=== PATIENT | female | born 1985 | race Caucasian/White ===

== ENCOUNTER → 2016-04-17 | Outpatient (CLI) | payer OTHER ==
--- NOTE | 2016-04-17 13:53 | REP ---
Clinical: Thyroid nodule. Technique: Real time edmonds scale and color evaluation using linear high frequency transducer. Findings: The thyroid gland is diffusely heterogeneous and mildly enlarged. The left lobe measures 5.3 x 2.9 x 2.8 cm and dominated by large complex nodule with subtle vascularity measuring 3.4 x 2.5 x 2.1 cm. Right lobe measures 5.1 x 2.0 x 2.1 cm without nodule or cystic changes. Isthmus measures 8 mm in width. Impression: Complex nonspecific vascular nodule in the left thyroid lobe. No prior examination for comparison. The sampling by interventional radiology may be warranted.
== END ==
LOC: M WHC 13:06
PROVIDERS: ATTEND Physician Assistant
DX: E04.1 Nontoxic single thyroid nodule (principal)

== ENCOUNTER → 2016-06-26 | Outpatient (REF) | payer OTHER | LOC: M LAB REF 09:46 | PROVIDERS: ATTEND Physician Assistant Medical | DX: J02.9 Acute pharyngitis, unspecified (principal) ==

== ENCOUNTER → 2016-08-08 | Outpatient (CLI) | payer OTHER ==
--- NOTE | 2016-08-09 07:51 | REP ---
Clinical: Cough . Comparison: None . Technique: PA and lateral. Findings: The mediastinum and cardiac silhouette are normal. The lung watson are clear and without acute consolidation, effusion, or pneumothorax. The skeletal structures are intact and normal. Impression: 1. No acute cardiopulmonary process. Signed by Jaden Bates MD 08/09/2016 07:43 A
[2016-08-09 10:36] LABS: BASO % 0.2 % (0.0-1.0); EOS # 0.2 K/mm3 (0.0-0.50); EOS % 2.2 % (0.0-3.0); LARGE UNSTAINED CELL # 0.1 K/mm3 (0.0-0.4); LARGE UNSTAINED CELL % 0.9 % (0.0-4.0); LYMPH # 2.1 K/mm3 (1.5-4.5); LYMPH % 17.3 % (24.0-44.0); MEAN CORPUSCULAR HGB CONC 30.4 g/dl (32.0-36.5); MEAN CORPUSCULAR VOLUME 75.6 fl (80.0-96.0); MONO # 0.4 K/mm3 (0.0-0.8); MONO % 3.2 % (0.0-5.0); NEUTROPHILS # 8.7 K/mm3 (1.8-7.7); NEUTROPHILS % 76.3 % (36.0-66.0); PLATELET COUNT, AUTOMATED 343 k/mm3 (150-450); RED CELL DISTRIBUTION WIDTH 15.9 % (11.5-14.5); WHITE BLOOD COUNT 11.4 K/mm3 (4.0-10.0)
== END ==
LOC: M ADAMS 18:30
PROVIDERS: ATTEND Physician Assistant
DX: R05 Cough (principal); R50.9 Fever, unspecified

== ENCOUNTER → 2016-08-17 | Outpatient (REF) | payer OTHER | LOC: M LAB REF 12:37 | PROVIDERS: ATTEND Internal Medicine Endocrinology, Diabetes & Metabolism | DX: E04.1 Nontoxic single thyroid nodule (principal) ==

== ENCOUNTER → 2016-08-22 | Outpatient (REF) | payer OTHER | LOC: M SFHCADAM 10:10 | PROVIDERS: ATTEND Family Medicine | DX: E55.9 Vitamin D deficiency, unspecified (principal) ==

== ENCOUNTER 2016-11-25 13:20 | Emergency (ER) | payer OTHER ==
[~2016-11-25] VITALS: Ht 162.6 cm; Wt 127.3 kg
[2016-11-25] MEDS ORDERED: CYCL10TA PO (13:35)
[2016-11-25] MEDS ORDERED: TRAM50TA2 PO (13:35)
[2016-11-25] MEDS ORDERED: CEPHALEXIN 500 MG CAP PO ONE (15:30)
[2016-11-25] MEDS ORDERED: IBUPROFEN 600 MG TAB PO ONE (15:30)
[2016-11-25] MEDS ORDERED: KEFL500C17 PO (16:43)
[2016-11-25] MEDS ORDERED: CLEO300C2 PO (16:49)
[2016-11-25 17:20] VITALS: BP 166/88
--- NOTE | 2016-11-26 11:55 | REP ---
CLOSE RIGHT HIP: Two views. HISTORY: Injury in a fall. FINDINGS: Bony pelvic ring is intact. No pelvic or sacral fracture is seen. Proximal femurs are intact. AP and frog-leg views of the right hip show no abnormality. IMPRESSION: No fracture seen. Signed by Hernan Potter MD 11/26/2016 12:37 P
--- NOTE | 2016-11-26 11:56 | REP ---
RIGHT KNEE SERIES: Five views. HISTORY: Twisting injury in a fall. FINDINGS: Five views of the right knee are compared with the July 14, 2010 prior radiographs. There is no evidence of fracture, subluxation, or joint effusion. IMPRESSION: Negative right knee radiographs. Signed by Hernan Potter MD 11/26/2016 12:37 P
== END 2016-11-25 17:46 | disposition home or self-care (01) ==
LOC: M ED 13:20
DX: M23.91 Unspecified internal derangement of right knee (principal); L03.031 Cellulitis of right toe; E04.1 Nontoxic single thyroid nodule; G43.909 Migraine, unspecified, not intractable, without status migrainosus; Z87.891 Personal history of nicotine dependence; Z88.1 Allergy status to other antibiotic agents; Z88.2 Allergy status to sulfonamides; Z88.8 Allergy status to other drugs, medicaments and biological substances

== ENCOUNTER 2017-03-13 15:47 | Emergency (ER) | payer OTHER ==
[~2017-03-13] VITALS: Ht 162.6 cm; Wt 127.3 kg
[~2017-03-13 15:47] MED LIST: CLEO300C2 PO; CYCL10TA PO; KEFL500C17 PO; TRAM50TA2 PO
[2017-03-13 15:48] VITALS: BP 158/96
[2017-03-13] MEDS ORDERED: VITA1CAP40 (16:10)
[2017-03-13] MEDS ORDERED: TYLE325T5 PO (16:10)
== END 2017-03-13 17:14 | disposition home or self-care (01) ==
LOC: M ED 15:47
DX: J06.9 Acute upper respiratory infection, unspecified (principal); F17.210 Nicotine dependence, cigarettes, uncomplicated; Z88.0 Allergy status to penicillin; Z88.2 Allergy status to sulfonamides

== ENCOUNTER 2017-06-17 13:41 | Emergency (ER) | payer OTHER ==
[2017-06-17] MEDS: IBUPROFEN 600 MG TAB PO (15:56)
[2017-06-17] MEDS: NORCO, ANEXSIA 5/325MG TABLET (HYDROcodone/ACETAMINOPHEN) PO (17:15)
== END 2017-06-17 17:36 | disposition home or self-care (01) ==
LOC: M ED 13:41
DX: S82.65XA Nondisplaced fracture of lateral malleolus of left fibula, initial encounter for closed fracture (principal); W01.0XXA Fall on same level from slipping, tripping and stumbling without subsequent striking against object, initial encounter; Y92.099 Unspecified place in other non-institutional residence as the place of occurrence of the external cause; Y93.9 Activity, unspecified; M54.9 Dorsalgia, unspecified; F17.200 Nicotine dependence, unspecified, uncomplicated; Z79.899 Other long term (current) drug therapy; Z88.0 Allergy status to penicillin; Z88.2 Allergy status to sulfonamides; Z88.8 Allergy status to other drugs, medicaments and biological substances; Z88.1 Allergy status to other antibiotic agents
CPT/HCPCS: 73610

== ENCOUNTER 2017-06-29 20:27 | Emergency (ER) | payer OTHER ==
[2017-06-30] MEDS: CEPHALEXIN 500 MG CAP PO
== END 2017-06-30 00:32 | disposition home or self-care (01) ==
LOC: M ED 06-30 00:32
DX: J03.90 Acute tonsillitis, unspecified (principal); F17.200 Nicotine dependence, unspecified, uncomplicated; Z88.0 Allergy status to penicillin; Z88.2 Allergy status to sulfonamides
CPT/HCPCS: 99282

== ENCOUNTER → 2017-07-03 | Outpatient (REF) | payer OTHER | LOC: M LAB REF 12:20 | DX: N30.01 Acute cystitis with hematuria (principal) | CPT/HCPCS: 87086 ==

== ENCOUNTER 2017-07-08 17:46 | Emergency (ER) | payer OTHER | END 2017-07-08 19:52 | disposition left against medical advice (07) | LOC: M ED 17:46 | DX: Z53.29 Procedure and treatment not carried out because of patient's decision for other reasons (principal) ==

== ENCOUNTER 2017-07-10 14:35 | Emergency (ER) | payer OTHER ==
[2017-07-10 15:20] LABS: CONTROL LINE UCG INT CTR LINE PRESENT; URINE PREG TEST NEGATIVE (NEGATIVE)
[2017-07-10 15:26] LABS: KETONE, URINE AUTO RFX NEGATIVE (NEGATIVE); NITRITE, URINE AUTO RFX NEGATIVE (NEGATIVE); RBC, URINE AUTO RFX 2 /HPF (0-3); SPECIFIC GRAVITY UR AUTO RFX 1.003 (1.002-1.035); SQUAM EPITHELIAL CELL UR AURFX 0 /HPF (0-6); WBC, URINE AUTO RFX 1 /HPF (0-3)
[2017-07-10 15:28] LABS: LEUKOCYTE ESTERASE UR AUTO RFX TRACE (NEGATIVE)
[2017-07-10] MEDS: KETOROLAC 30 MG/ML VIAL (J1885) IV (16:12)
[2017-07-10] MEDS: NS 1,000 ML IV (16:12)
[2017-07-10 16:18] LABS: BASO % 0.3 % (0.0-1.0); EOS # 0.2 10^3/uL (0.0-0.50); EOS % 1.7 % (0.0-3.0); HEMATOCRIT 42.4 % (36.0-47.0); IMMATURE GRANULOCYTE % 0.9 % (0-3.0); LYMPH # 2.7 10^3/uL (1.5-4.5); LYMPH % 19.8 % (24.0-44.0); MEAN CORPUSCULAR HGB CONC 30.7 g/dl (32.0-36.5); MEAN CORPUSCULAR VOLUME 78.4 fl (80.0-96.0); MONO # 0.6 10^3/uL (0.0-0.8); MONO % 4.1 % (0.0-5.0); NEUTROPHILS % 73.2 % (36.0-66.0); PLATELET COUNT, AUTOMATED 371 10^3/uL (150-450); RED BLOOD COUNT 5.41 10^6/uL (4.00-5.40); RED CELL DISTRIBUTION WIDTH 16.4 % (11.5-14.5); WHITE BLOOD COUNT 13.6 10^3/uL (4.0-10.0)
[2017-07-10 16:51] LABS: ALBUMIN 3.5 GM/DL (3.2-5.2); ALBUMIN/GLOBULIN RATIO 0.76 (1.00-1.93); ALKALINE PHOSPHATASE 110 U/L (45-117); ALT/SGPT 16 U/L (12-78); ANION GAP 7 MEQ/L (8-16); AST/SGOT 9 U/L (7-37); BILIRUBIN,DIRECT < 0.1 MG/DL (0.0-0.2); BILIRUBIN,TOTAL 0.3 MG/DL (0.2-1.0); BLOOD UREA NITROGEN 9 MG/DL (7-18); CARBON DIOXIDE LEVEL 29 MEQ/L (21-32); CHLORIDE LEVEL 104 MEQ/L (98-107); CREATININE FOR GFR 0.64 MG/DL (0.55-1.30); GLOMERULAR FILTRATION RATE > 60.0 (>60); GLUCOSE, FASTING 102 MG/DL (70-100); POTASSIUM SERUM 3.9 MEQ/L (3.5-5.1); SODIUM LEVEL 140 MEQ/L (136-145); TOTAL PROTEIN 8.1 GM/DL (6.4-8.2)
[2017-07-10] MEDS: MORPHINE 4 MG/ML 1ML VIAL (J2270) IV (17:41)
== END 2017-07-10 18:04 | disposition home or self-care (01) ==
LOC: M ED 14:35
DX: N83.202 Unspecified ovarian cyst, left side (principal); Z88.0 Allergy status to penicillin; Z88.2 Allergy status to sulfonamides; Z88.8 Allergy status to other drugs, medicaments and biological substances
CPT/HCPCS: J2270

== ENCOUNTER → 2017-07-27 | Outpatient (CLI) | payer OTHER | LOC: M ADAMS 13:53 | DX: M25.572 Pain in left ankle and joints of left foot (principal); N30.01 Acute cystitis with hematuria | CPT/HCPCS: 87186 ==

== ENCOUNTER 2017-07-31 18:36 | Emergency (ER) | payer OTHER ==
[2017-07-31] MEDS: ONDANSETRON 4 MG ORAL DISINTEGRATING TAB (Q0162 PER 1MG) PO (19:30)
[2017-07-31] MEDS: IPRATROPIUM 0.5MG/ALBUTEROL 2.5MG INH SOL UD 3ML (DUONEB)(J7620) NEB (20:08)
[2017-07-31 20:31] LABS: INFLUENZA A AMPLIFICATION NEGATIVE (NEGATIVE); INFLUENZA B AMPLIFICATION NEGATIVE (NEGATIVE)
[2017-07-31] MEDS: IBUPROFEN 800 MG TAB PO (20:39)
[2017-07-31] MEDS: predniSONE 20 MG TAB PO (21:45)
== END 2017-07-31 21:59 | disposition home or self-care (01) ==
LOC: M ED 18:36
DX: J06.9 Acute upper respiratory infection, unspecified (principal); J98.01 Acute bronchospasm; Z79.899 Other long term (current) drug therapy; Z88.0 Allergy status to penicillin; Z88.2 Allergy status to sulfonamides; Z88.8 Allergy status to other drugs, medicaments and biological substances; F17.200 Nicotine dependence, unspecified, uncomplicated
CPT/HCPCS: Q0162

== ENCOUNTER 2017-08-06 17:26 | Emergency (ER) | payer OTHER ==
[2017-08-06] MEDS: NS 500 ML IV (18:45)
[2017-08-06] MEDS: KETOROLAC 30 MG/ML VIAL (J1885) IV (19:30)
[2017-08-06 19:52] LABS: BASO % 0.2 % (0.0-1.0); EOS # 0.2 10^3/uL (0.0-0.50); EOS % 1.9 % (0.0-3.0); HEMATOCRIT 37.9 % (36.0-47.0); HEMOGLOBIN 11.8 g/dl (12.0-15.5); IMMATURE GRANULOCYTE % 0.9 % (0-3.0); LYMPH % 24.5 % (24.0-44.0); MEAN CORPUSCULAR HEMOGLOBIN 24.2 pg (27.0-33.0); MEAN CORPUSCULAR HGB CONC 31.1 g/dl (32.0-36.5); MEAN CORPUSCULAR VOLUME 77.7 fl (80.0-96.0); MONO # 0.7 10^3/uL (0.0-0.8); MONO % 5.6 % (0.0-5.0); NEUTROPHILS # 8.2 10^3/uL (1.8-7.7); NEUTROPHILS % 66.9 % (36.0-66.0); PLATELET COUNT, AUTOMATED 349 10^3/uL (150-450); RED BLOOD COUNT 4.88 10^6/uL (4.00-5.40); RED CELL DISTRIBUTION WIDTH 16.3 % (11.5-14.5); WHITE BLOOD COUNT 12.2 10^3/uL (4.0-10.0)
[2017-08-06 20:09] LABS: CONTROL LINE HCG INT CTR LINE PRESENT; HCG, SERUM QUALITATIVE NEGATIVE (NEGATIVE)
[2017-08-06 20:20] LABS: ALBUMIN 3.2 GM/DL (3.2-5.2); ALBUMIN/GLOBULIN RATIO 0.84 (1.00-1.93); ALKALINE PHOSPHATASE 91 U/L (45-117); ALT/SGPT 23 U/L (12-78); ANION GAP 9 MEQ/L (8-16); AST/SGOT 11 U/L (7-37); BILIRUBIN,DIRECT < 0.1 MG/DL (0.0-0.2); BILIRUBIN,TOTAL 0.2 MG/DL (0.2-1.0); BLOOD UREA NITROGEN 12 MG/DL (7-18); CALCIUM LEVEL 8.3 MG/DL (8.5-10.1); CARBON DIOXIDE LEVEL 26 MEQ/L (21-32); CHLORIDE LEVEL 109 MEQ/L (98-107); CPK CREATINE PHOSPHOKINASE 35 U/L (26-192); CREATININE FOR GFR 0.69 MG/DL (0.55-1.30); FREE T4 1.24 NG/DL (0.76-1.46); GLOMERULAR FILTRATION RATE > 60.0 (>60); GLUCOSE, FASTING 107 MG/DL (70-100); LIPASE 93 U/L (73-393); POTASSIUM SERUM 3.7 MEQ/L (3.5-5.1); SODIUM LEVEL 144 MEQ/L (136-145); TROPONIN I < 0.02 NG/ML (< 0.10)
[2017-08-06 20:23] LABS: D-DIMER QUANT < 270.0 ng/ml (<500)
[2017-08-06 20:25] LABS: CK-MB VALUE MASS < 1.0 NG/ML (<3.6); MB/CK RELATIVE INDEX 2.85 (< OR =4); THYROID STIMULATING HORMONE 0.629 uIU/ML (0.358-3.740)
[2017-08-06] MEDS: NORCO 5/325MG TABLET (BULK FOR ED) PO (21:00)
== END 2017-08-06 21:17 | disposition home or self-care (01) ==
LOC: M ED 17:26
DX: R07.89 Other chest pain (principal); Z88.0 Allergy status to penicillin; Z88.2 Allergy status to sulfonamides; Z88.8 Allergy status to other drugs, medicaments and biological substances; F17.210 Nicotine dependence, cigarettes, uncomplicated
CPT/HCPCS: J1885

== ENCOUNTER 2018-05-14 16:41 | Emergency (ER) | payer MEDICAID, OTHER, SELFPAY ==
[~2018-05-14] VITALS: Ht 165.1 cm; Wt 115.9 kg
[~2018-05-14 16:41] MED LIST changes: +ALBU17IN2 INH; +BENZ200C70 PO; +FLUTISP INH; +HYDR-3715 PO; +IBUP200C25 PO; +NAPR-837 PO; +NITR100C2 PO; +PRED20TA PO; +TYLE325T5 PO; +VITA10002 PO; +VITA50005; +VITA50005 PO
[2018-05-14] MEDS ORDERED: KETOROLAC 30 MG/ML VIAL (J1885) IM ONE (17:15)
[2018-05-14] MEDS ORDERED: ACETAMINOPHEN 325 MG TAB PO ONE (17:15)
--- NOTE | 2018-05-14 18:00 | REP ---
Lumbar spine series: Five views. History: Trauma. Findings: Five views of the lumbar spine show straightening of the normal lumbar lordosis. Vertebral body heights are preserved. Alignment is normal. Pedicles and posterior elements are intact. No fracture or collapse is seen. Sacrum and SI joints are intact. Visualized bowel gas pattern is normal. Psoas margins are symmetric. Impression: Straightening. Otherwise negative lumbar spine radiographs. Electronically Signed by Hernan Potter MD 05/14/2018 05:52 P
--- NOTE | 2018-05-14 18:01 | REP ---
Right hand series: Four views. History: Trauma. Findings: Four views right hand demonstrate overall normal mineralization. Bones, joints and soft tissues are unremarkable. No fracture or subluxation is seen. Impression: Negative right hand radiographs. No fracture seen. Electronically Signed by Hernan Potter MD 05/14/2018 05:53 P
--- NOTE | 2018-05-14 18:02 | REP ---
Right forearm: Two views. History: Trauma. Findings: AP and lateral views of the right forearm demonstrate normal bones, joints and soft tissues. No fracture or subluxation is seen. Impression: Negative radiographs of the right forearm. Electronically Signed by Hernan Potter MD 05/14/2018 05:54 P
[2018-05-14 18:40] VITALS: BP 142/91
--- NOTE | 2018-05-14 19:28 | REP ---
Right humerus: Two views. History: Trauma. Findings: AP and lateral views of the right humerus demonstrate normal bones, joints and soft tissues. There is no evidence of fracture or subluxation. Impression: Negative radiographs of the right humerus. Electronically Signed by Hernan Potter MD 05/14/2018 07:33 P
== END 2018-05-14 18:52 | disposition home or self-care (01) ==
LOC: M ED 16:41
DX: S30.0XXA Contusion of lower back and pelvis, initial encounter (principal); S40.021A Contusion of right upper arm, initial encounter; W00.0XXA Fall on same level due to ice and snow, initial encounter; Y92.009 Unspecified place in unspecified non-institutional (private) residence as the place of occurrence of the external cause
CPT/HCPCS: 72110; 73060; 73090; 73130; 96372; 99283; J1885

== ENCOUNTER 2018-05-26 17:52 | Emergency (ER) | payer MEDICAID, SELFPAY ==
[~2018-05-26] VITALS: Ht 162.6 cm; Wt 115.9 kg
[2018-05-26] MEDS ORDERED: IPRATROPIUM 0.5MG/ALBUTEROL 2.5MG INH SOL UD 3ML (DUONEB)(J7620) NEB ONE (20:30)
[2018-05-26] MEDS ORDERED: MUCI600T37 PO (20:57)
[2018-05-26] MEDS ORDERED: ZITHTAB PO (20:57)
[2018-05-26] MEDS ORDERED: BENZ200C70 PO (20:57)
[2018-05-26] MEDS ORDERED: VENTAER INH (20:59)
[2018-05-26] MEDS ORDERED: AZITHROMYCIN 250 MG TAB PO ONE (21:00)
[2018-05-26 21:04] VITALS: BP 141/71
--- NOTE | 2018-05-27 01:44 | REP ---
Clinical: Cough and chills with shortness of breath . Comparison: 08/06/2017 . Technique: PA and lateral. Findings: The mediastinum and cardiac silhouette are normal. The lung watson are clear and without acute consolidation, effusion, or pneumothorax. The skeletal structures are intact and normal. Impression: 1. No acute cardiopulmonary process. Electronically Signed by Jaden Bates MD 05/27/2018 01:36 A
== END 2018-05-26 21:09 | disposition home or self-care (01) ==
LOC: M ED 17:52
DX: J06.9 Acute upper respiratory infection, unspecified (principal); F17.210 Nicotine dependence, cigarettes, uncomplicated; Z88.0 Allergy status to penicillin; Z88.2 Allergy status to sulfonamides; Z79.899 Other long term (current) drug therapy

== ENCOUNTER 2018-07-20 07:23 | Emergency (ER) | payer MEDICAID, SELFPAY ==
[~2018-07-20] VITALS: Ht 162.6 cm; Wt 120.5 kg
[~2018-07-20 07:23] MED LIST changes: +MUCI600T37 PO; +VENTAER INH; +ZITHTAB PO
[2018-07-20] MEDS ORDERED: KETOROLAC 30 MG/ML VIAL (J1885) IV ONE (08:00)
[2018-07-20 08:28] LABS: BASO % 0.3 % (0.0-1.0); EOS # 0.3 10^3/uL (0.0-0.50); EOS % 2.1 % (0.0-3.0); HEMATOCRIT 40.2 % (36.0-47.0); HEMOGLOBIN 12.9 g/dl (12.0-15.5); LYMPH # 1.3 10^3/uL (1.5-4.5); LYMPH % 9.2 % (24.0-44.0); MEAN CORPUSCULAR HEMOGLOBIN 25.4 pg (27.0-33.0); MEAN CORPUSCULAR HGB CONC 32.1 g/dl (32.0-36.5); MEAN CORPUSCULAR VOLUME 79.3 fl (80.0-96.0); MONO # 0.7 10^3/uL (0.0-0.8); MONO % 4.8 % (0.0-5.0); NEUTROPHILS # 11.3 10^3/uL (1.8-7.7); NEUTROPHILS % 82.5 % (36.0-66.0); PLATELET COUNT, AUTOMATED 355 10^3/uL (150-450); RED BLOOD COUNT 5.07 10^6/uL (4.00-5.40); WHITE BLOOD COUNT 13.6 10^3/uL (4.0-10.0)
[2018-07-20 08:59] LABS: ALBUMIN 3.4 GM/DL (3.2-5.2); ALT/SGPT 17 U/L (12-78); BILIRUBIN,DIRECT < 0.1 MG/DL (0.0-0.2); BILIRUBIN,TOTAL 0.2 MG/DL (0.2-1.0); BLOOD UREA NITROGEN 8 MG/DL (7-18); CALCIUM LEVEL 8.7 MG/DL (8.5-10.1); CARBON DIOXIDE LEVEL 26 MEQ/L (21-32); CHLORIDE LEVEL 104 MEQ/L (98-107); CK-MB VALUE MASS < 1.0 NG/ML (<3.6); CPK CREATINE PHOSPHOKINASE 37 U/L (26-192); CREATININE FOR GFR 0.79 MG/DL (0.55-1.30); GLOMERULAR FILTRATION RATE > 60.0 (>60); GLUCOSE, FASTING 112 MG/DL (70-100); HCG, SERUM QUALITATIVE NEGATIVE (NEGATIVE); LIPASE 83 U/L (73-393); POTASSIUM SERUM 4.2 MEQ/L (3.5-5.1); SODIUM LEVEL 139 MEQ/L (136-145); TOTAL PROTEIN 7.4 GM/DL (6.4-8.2); TROPONIN I < 0.02 NG/ML (< 0.10)
[2018-07-20] MEDS ORDERED: PERCOCET 5MG/325MG TAB PO ONE (10:15)
[2018-07-20] MEDS ORDERED: PERC5TAB12 PO (13:01)
[2018-07-20] MEDS ORDERED: NEUR300C PO (13:01)
[2018-07-20] MEDS ORDERED: IBUP80TA PO (13:03)
[2018-07-20 13:08] LABS: CK-MB VALUE MASS < 1.0 NG/ML (<3.6); CPK CREATINE PHOSPHOKINASE 29 U/L (26-192); MB/CK RELATIVE INDEX 3.45 (< OR =4); TROPONIN I < 0.02 NG/ML (< 0.10)
[2018-07-20 13:56] VITALS: BP 121/77
--- NOTE | 2018-07-20 19:24 | ECGEPIP ---
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
--- NOTE | 2018-07-21 09:26 | REP ---
Chest x-ray: Two views. History: Chest pain. . Comparison study: May 26, 2018 . Findings: The lungs are well inflated and free of infiltrate. The pleural angles are sharp. The heart size is normal. Pulmonary vasculature is not increased. No significant bony abnormality is seen. Impression: Negative chest x-ray. Electronically Signed by Hernan Potter MD 07/20/2018 08:05 A
--- NOTE | 2018-07-21 09:26 | REP ---
Left clavicle: Two views. History: Shoulder pain. Remote clavicle injury. Findings: Two views of the left clavicle demonstrate normal bones, joints, and soft tissues. No fracture subluxation or other abnormality. No post-traumatic deformity is seen. Impression: Negative radiographs of the left clavicle. Electronically Signed by Hernan Potter MD 07/20/2018 08:06 A
== END 2018-07-20 13:58 | disposition home or self-care (01) ==
LOC: M ED 07:23
DX: M25.511 Pain in right shoulder (principal); G89.29 Other chronic pain; R07.9 Chest pain, unspecified; R03.0 Elevated blood-pressure reading, without diagnosis of hypertension; F17.210 Nicotine dependence, cigarettes, uncomplicated; Z87.828 Personal history of other (healed) physical injury and trauma; Z82.49 Family history of ischemic heart disease and other diseases of the circulatory system; Z88.1 Allergy status to other antibiotic agents; Z88.2 Allergy status to sulfonamides; Z88.8 Allergy status to other drugs, medicaments and biological substances
CPT/HCPCS: 71046; 73000; 80048; 80076; 82550; 82553; 83690; 84703; 85025; 93005; 96374; 99284; J1885

== ENCOUNTER 2018-12-22 21:29 | Emergency (ER) | payer MEDICAID, OTHER ==
[~2018-12-22] VITALS: Ht 162.6 cm; Wt 116.8 kg
[~2018-12-22 21:29] MED LIST changes: -ALBU17IN2 INH; +CYAN100049 PO; +IBUP80TA PO; +NEUR300C PO; +PERC5TAB12 PO; +PROV108A INH; -VITA10002 PO
[2018-12-22] MEDS ORDERED: RANI150T14 PO (21:36)
[2018-12-22] MEDS ORDERED: ALL10TAB29 PO (21:36)
[2018-12-22 23:16] VITALS: BP 162/89
--- NOTE | 2018-12-23 03:04 | REP ---
Clinical: Trauma. Pain at the fourth and fifth metacarpal phalangeal joints. Technique: AP, lateral, bilateral oblique views left hand . Findings: The osseous structures and joint spaces are intact and normal. There is no evidence for acute fracture or dislocation. Surrounding soft tissues are unremarkable. No subcutaneous emphysema or radiodense foreign body. Impression: Normal left hand series . No acute fracture or dislocation. Electronically Signed by Jaden Bates MD 12/23/2018 02:56 A
== END 2018-12-22 23:17 | disposition home or self-care (01) ==
LOC: M ED 21:29
DX: S60.222A Contusion of left hand, initial encounter (principal); F17.200 Nicotine dependence, unspecified, uncomplicated; M54.9 Dorsalgia, unspecified; Z88.0 Allergy status to penicillin; Z88.2 Allergy status to sulfonamides; Z88.8 Allergy status to other drugs, medicaments and biological substances; W20.8XXA Other cause of strike by thrown, projected or falling object, initial encounter; Y92.9 Unspecified place or not applicable; Z79.899 Other long term (current) drug therapy; Y99.8 Other external cause status

== ENCOUNTER 2019-02-17 10:07 | Emergency (ER) | payer OTHER ==
[~2019-02-17] VITALS: Ht 162.6 cm; Wt 121.8 kg
[~2019-02-17 10:07] MED LIST changes: +ALL10TAB29 PO; +RANI150T14 PO
[2019-02-17] MEDS ORDERED: IPRATROPIUM 0.5MG/ALBUTEROL 2.5MG INH SOL UD 3ML (DUONEB)(J7620) NEB ONE (10:45)
--- NOTE | 2019-02-17 11:06 | REP ---
Two-view chest: 02/17/2019. Indication: Cough. Fever. Comparison: 07/20/2018. Findings: The lungs are clear. There is no pleural effusion or pneumothorax. The cardiac silhouette is not enlarged. Impression: No acute cardiopulmonary process. Electronically Signed by Jakob Smith DO 02/17/2019 10:58 A
[2019-02-17 11:36] LABS: INFLUENZA A AMPLIFICATION NEGATIVE (NEGATIVE); INFLUENZA B AMPLIFICATION NEGATIVE (NEGATIVE)
[2019-02-17] MEDS ORDERED: BENZ200C70 PO (12:14)
[2019-02-17] MEDS ORDERED: VENTAER INH (12:14)
[2019-02-17] MEDS ORDERED: CEPH500C PO (12:14)
[2019-02-17 12:29] VITALS: BP 121/78
== END 2019-02-17 12:32 | disposition home or self-care (01) ==
LOC: M ED 10:07
DX: J03.90 Acute tonsillitis, unspecified (principal); R06.02 Shortness of breath; R05 Cough; M54.9 Dorsalgia, unspecified; F17.200 Nicotine dependence, unspecified, uncomplicated; Z79.899 Other long term (current) drug therapy; Z88.0 Allergy status to penicillin; Z88.2 Allergy status to sulfonamides

== ENCOUNTER → 2019-07-28 | Outpatient (REF) | payer OTHER ==
[~2019-07-28] MED LIST changes: +CEPH500C PO; +CYCL-707 PO; -CYCL10TA PO
== END ==
LOC: M SFHCADAM 15:39
PROVIDERS: ATTEND Family Medicine
DX: J02.9 Acute pharyngitis, unspecified (principal)

== ENCOUNTER → 2020-04-18 | Outpatient (CLI) | payer OTHER ==
[~2020-04-18] MED LIST changes: -ALL10TAB29 PO; +CETI-24 PO
== END ==
LOC: M LABSMTC 14:23
PROVIDERS: ATTEND Family Medicine
DX: Z20.822 Contact with and (suspected) exposure to COVID-19 (principal)

== ENCOUNTER → 2020-04-22 | Outpatient (CLI) | payer OTHER | LOC: M LABSMTC 13:50 | PROVIDERS: ATTEND Family Medicine | DX: Z20.822 Contact with and (suspected) exposure to COVID-19 (principal) ==

== ENCOUNTER → 2020-05-03 | Outpatient (REF) | payer OTHER | LOC: M SFHCADAM 09:43 | PROVIDERS: ATTEND Physician Assistant | DX: Z11.1 Encounter for screening for respiratory tuberculosis (principal) ==

== ENCOUNTER → 2020-06-10 | Outpatient (CLI) | payer OTHER | LOC: M LABSMTC 13:50 | PROVIDERS: ATTEND Family Medicine | DX: Z11.52 Encounter for screening for COVID-19 (principal) ==

== ENCOUNTER → 2020-07-15 | Outpatient (CLI) | payer SELFPAY | LOC: M LABSMTC 13:56 | PROVIDERS: ATTEND Pediatrics | DX: Z20.822 Contact with and (suspected) exposure to COVID-19 (principal) ==

== ENCOUNTER → 2020-07-29 | Outpatient (REF) | payer OTHER ==
[2020-07-29 13:47] LABS: HEMATOCRIT 45.3 % (36.0-47.0); HEMOGLOBIN 13.8 g/dl (12.0-15.5); MEAN CORPUSCULAR HGB CONC 30.5 g/dl (32.0-36.5); MEAN CORPUSCULAR VOLUME 81.9 fl (80.0-96.0); PLATELET COUNT, AUTOMATED 381 10^3/uL (150-450); RED BLOOD COUNT 5.53 10^6/uL (4.00-5.40); WHITE BLOOD COUNT 17.2 10^3/uL (4.0-10.0)
== END ==
LOC: M PLALAB 10:31
PROVIDERS: ATTEND Obstetrics & Gynecology
DX: Z12.4 Encounter for screening for malignant neoplasm of cervix (principal); N93.9 Abnormal uterine and vaginal bleeding, unspecified; R87.615 Unsatisfactory cytologic smear of cervix

== ENCOUNTER → 2020-08-01 | Outpatient (CLI) | payer OTHER ==
--- NOTE | 2020-08-01 13:13 | REP ---
INDICATION: N93.9 ABNORMAL UTERINE BLEEDING. COMPARISON: None. TECHNIQUE: Transabdominal and transvaginal scanning performed. FINDINGS: Uterine dimensions are 10.1 x 3.6 x 5.7 cm. Endometrial echo is 7 mm in AP dimension and centrally placed. There appears to be a fibroid in the lower uterine segment 8 mm in diameter. Nabothian cysts are seen in the region of the cervix. The bladder measures 12.8 x 7.6 x 9.1cm. The right ovary has dimensions of 2.2 x 2.0 x 2.1 cm. The left ovary dimensions are 2.4 x 1.6 x 2.1 cm. There is no adnexal mass identified. No free fluid is seen in the cul-de-sac. IMPRESSION: Subcentimeter fibroid in lower uterine segment. No adnexal mass or free fluid. Endometrial thickness 7 mm. <Electronically signed by Angel Casiano > 08/01/20 1344
== END ==
LOC: M WHC 08:01
PROVIDERS: ATTEND Obstetrics & Gynecology
DX: N93.9 Abnormal uterine and vaginal bleeding, unspecified (principal); D25.9 Leiomyoma of uterus, unspecified

== ENCOUNTER → 2020-08-17 | Outpatient (REF) | payer OTHER | LOC: M SFHCWAGY 13:18 | PROVIDERS: ATTEND Obstetrics & Gynecology | DX: N93.9 Abnormal uterine and vaginal bleeding, unspecified (principal) ==

== ENCOUNTER → 2020-12-15 | Outpatient (CLI) | payer OTHER ==
[2020-12-15 17:51] LABS: HCG, SERUM QUALITATIVE NEGATIVE (NEGATIVE)
== END ==
LOC: M PLALAB 14:02
PROVIDERS: ATTEND Obstetrics & Gynecology
DX: Z32.01 Encounter for pregnancy test, result positive (principal)

== ENCOUNTER → 2020-12-28 | Outpatient (CLI) | payer OTHER | LOC: M LABSMTC 11:53 | PROVIDERS: ATTEND Pediatrics | DX: Z20.822 Contact with and (suspected) exposure to COVID-19 (principal) ==

== ENCOUNTER → 2021-02-08 | Outpatient (CLI) | payer OTHER ==
[~2021-02-08] MED LIST changes: +ERGO500029 PO
--- NOTE | 2021-02-08 15:13 | REP ---
INDICATION: CONTUSION OF SACRUM SUBSEQUENT ENCOUNTER. COMPARISON: 11/25/2016 TECHNIQUE: A single AP view of the pelvis was performed. FINDINGS: The hip joint spaces are symmetric and relatively well maintained. There is no acute fracture or destructive osseous lesion. IMPRESSION: No significant change from the prior exam. No acute osseous abnormality. <Electronically signed by Eliel Suero > 02/08/21 0268
--- NOTE | 2021-02-08 15:17 | REP ---
INDICATION: RIGHT HIP PAIN. COMPARISON: 11/25/2016 TECHNIQUE: AP and frog-lateral views FINDINGS: The hip joint space is symmetric and well maintained. It is unchanged from the prior exam. There is no acute fracture, dislocation, or subluxation. There is no buttressing. There is no prominent marginal osteophytosis. IMPRESSION: No osseous abnormality or significant change compared to the prior exam. <Electronically signed by Eliel uSero > 02/08/21 4823
== END ==
LOC: M ADAMS 14:24
PROVIDERS: ATTEND Physician Assistant
DX: S30.0XXD Contusion of lower back and pelvis, subsequent encounter (principal); M25.551 Pain in right hip; X58.XXXD Exposure to other specified factors, subsequent encounter; Y92.9 Unspecified place or not applicable; Y93.9 Activity, unspecified; Y99.9 Unspecified external cause status

== ENCOUNTER → 2021-02-08 | Outpatient (REF) | payer OTHER ==
[2021-02-08 17:34] LABS: HEMOGLOBIN A1c 5.6 %
== END ==
LOC: M SFHCADAM 14:21
PROVIDERS: ATTEND Physician Assistant
DX: N30.00 Acute cystitis without hematuria (principal); Z86.16 Personal history of COVID-19; Z13.1 Encounter for screening for diabetes mellitus

== ENCOUNTER → 2021-02-11 | Outpatient (CLI) | payer OTHER | LOC: M LABSMTC 10:46 | PROVIDERS: ATTEND Anesthesiology | DX: Z01.812 Encounter for preprocedural laboratory examination (principal); Z20.822 Contact with and (suspected) exposure to COVID-19 ==

== ENCOUNTER 2021-02-16 06:16 | Day surgery (SDC) | payer OTHER ==
[~2021-02-16] VITALS: Ht 165.1 cm; Wt 117.0 kg
[~2021-02-16 06:16] MED LIST changes: +LIDOCAINE 1% MDV 20ML VIAL SQ PRN; +LR 1,000 ML IV ONE
--- OUTSIDE RECORDS SUMMARY | 2021-02-16 06:20 | CCD ---
Author Author [facility] Organization [facility] Address Unknown Phone Unavailable Care Team Providers Care Fingerprint Clerk Name Role Phone Yue Edwards Unavailable PROBLEMS Type Condition ICD9-CM Code [id number] Code Onset Dates Condition S tatus W/U Status Risk SNOMED Code Notes Problem Thyroid nodule E04.1 Active confirmed 15746 5005 Problem Obesity (BMI 35.0-39.9 without comorbidity) E66.9 Active confirmed 331880315 Problem Essential hypertension I10 Active confirmed 13959722 Problem Dysmenorrhea, unspecified N94.6 Active confirmed 438237774 Problem BMI 50.0-59.9, adult Z68.43 Active confirmed 762732554 Problem Vitamin D deficiency E55.9 Active confirmed 18155664 Problem Restless leg syndrome G25.81 Active confirmed 73396605 Problem Adjustment disorder with depressed mood F43.21 Active confirmed 05830285 Problem Morbid obesity E66.01 Active confirmed 31056 6002 Problem Abnormal uterine bleeding N93.9 Active confirmed 23479686271737 Problem Daytime somnolence R40.0 Active confirmed 1 56115883619 Problem Postcoital bleeding N93.0 Active confirmed 84914699 Problem Left thyroid nodule E04.1 Active confirmed 290818088 Problem B12 deficiency E53.8 Active confirmed 71335 4004 Problem Cigarette nicotine dependence without complication F17.210 Active confirmed 32693444 Problem Current moderate episode of major depressive disorder without prior episode F32.1 Active confirmed 92879214 Problem Intractable migraine with aura with status migrainosus G43.111 Active confirmed 230515089 ALLERGIES Allergen (clinical drug ingredient) Drug/Non Drug Allergy do cumented on EMR Reaction Allergy Type Onset Date Status Bactrim Hives Drug Allergy Active Sulfa (for allergy use only) Hives Drug Allergy Active Augmentin nausea, vomiting, blood in stools Drug Allergy Active ENCOUNTERS from 1985 to 2020-12-27 Encounter Location Date Provider Diagnosis [facility] Jamie [address] [phone] [place] [address] Dec, Yue Edwards IMMUNIZATIONS Vaccine Route Administration Date Status TDAP 0.5mL (Boostrix) IM Intramuscular October 24, 2017 Administe red Influenza 6mo & up Fluzone IM Intramuscular Jan 05, 2014 Admi nistered Influenza 6mo & up Fluzone IM Intramuscular Jan 06, 2013 Admi nistered Influenza 6mo & up Fluzone IM Intramuscular Jan 09, 2012 Admi nistered SOCIAL HISTORY Tobacco Use: Social History Observation Description Date Details (start date - stop date) Current Smoker Sex Assigned At : Social History Observation Description Sex Assigned At Unknown Audit Question Answer Notes Total Score: 2 Interpretation: Alcohol Education Drug and Alcohol Question Answer Notes Total Score: 0 Interpretation: No problems reported Tobacco Use: Question Answer Notes Are you a: current smoker How many cigarettes a day do you smoke? 6-10 Are you interested in quitting? Thinking about quitting Counseled the patient on smoking cessation, education provid ed 07/28/2019 REASON FOR REFERRAL No Information VITAL SIGNS No information MEDICATIONS Medication SIG (Take, Route, Frequency, Duration) Notes Start Da te End Date Status Doxycycline Monohydrate 100 MG 1 capsule Orally Twice a day for 7 day(s) Jul, Not-Taking Doxycycline Hyclate 100 MG 1 tablet Orally Twice a day for 10 da y(s) Apr, Not-Taking traMADol HCl 50 MG 1 tab Orally every 6 hours as needed/MMD #4 Dr. Gonzalez [place] Active Chantix Starting Month Leo 0.5 MG X 11 & 1 MG X 42 as directed Orally as directed for 30 days Apr, Not-Taking Vitamin D (Cholecalciferol) 1000 UNIT 1 tablet Orally Once a day for 30 day(s) August, Active Flexeril 10 mg 1 tablet Orally-ortho twice a day/compen sation for 30 day(s) Dr. Gonzalez [place] Active Vitamin B-12 1000 MCG 1 tablet Orally Once a day for 30 day(s) Jul, Active Chantix Continuing Month Leo 1 MG 1 tab Orally Twice a day for 3 0 days Apr, Not-Taking PROCEDURES No Information RESULTS No Results REASON FOR VISIT multiple COVID sx MEDICAL (GENERAL) HISTORY Type Description Date Medical History Back injury September 2010 (Comp) Dr. Coelho Medical History migraines Medical History left thyroid nodule US 04/24 - s/p biopsy 08/2016 Medical History Depression Medical History Left shoulder pain - followe d by Dr. Roth [facility] (Comp) Surgical History 2005 Hospitalization History surgery related Goals Section No Information Health Concerns No Information MEDICAL EQUIPMENT No Information MENTAL STATUS No Information FUNCTIONAL STATUS No Information ASSESSMENTS No Information PLAN OF TREATMENT Next Appt Details Provider Name:Uli Cole, 08:20:00 AM, [address] [place] [address], [place], [place], [address] [place] [address], [address] [place] [address] Provider Name:Uli Cole, 09:30:00 AM, [address] [place] [address], [place], [place], [address] [place] [address], [address] [place] [address] Provider Name:Uli Cole, 01:20:00 PM, [address] [place] [address], [place], [place], [address] [place] [address], Insurance Providers Payer Name Payer Address Payer Phone Insured Name Patient Relati onship to Insured Coverage Start Date Coverage End Date [facility] [address] [facility] [id number] CORRINA WOOD self
--- OUTSIDE RECORDS SUMMARY | 2021-02-16 06:20 | CCD ---
Author Author [facility] Organization [facility] Address Unknown Phone Unavailable Care Team Providers Care Gis Analyst Developer Name Role Phone Yue Edwards Unavailable PROBLEMS Type Condition ICD9-CM Code [id number] Code Onset Dates Condition S tatus W/U Status Risk SNOMED Code Notes Problem Thyroid nodule E04.1 Active confirmed 73283 5005 Problem Obesity (BMI 35.0-39.9 without comorbidity) E66.9 Active confirmed 846517325 Problem Essential hypertension I10 Active confirmed 80108009 Problem Dysmenorrhea, unspecified N94.6 Active confirmed 128635262 Problem BMI 50.0-59.9, adult Z68.43 Active confirmed 741799170 Problem Vitamin D deficiency E55.9 Active confirmed 31781270 Problem Restless leg syndrome G25.81 Active confirmed 79961489 Problem Adjustment disorder with depressed mood F43.21 Active confirmed 41407375 Problem Morbid obesity E66.01 Active confirmed 01468 6002 Problem Abnormal uterine bleeding N93.9 Active confirmed 01587337987698 Problem Daytime somnolence R40.0 Active confirmed 1 22394390563 Problem Postcoital bleeding N93.0 Active confirmed 21954635 Problem Left thyroid nodule E04.1 Active confirmed 429990503 Problem B12 deficiency E53.8 Active confirmed 34790 4004 Problem Cigarette nicotine dependence without complication F17.210 Active confirmed 32585734 Problem Current moderate episode of major depressive disorder without prior episode F32.1 Active confirmed 20288921 Problem Intractable migraine with aura with status migrainosus G43.111 Active confirmed 111058059 ALLERGIES Allergen (clinical drug ingredient) Drug/Non Drug Allergy do cumented on EMR Reaction Allergy Type Onset Date Status Sulfa (for allergy use only) Hives Non Drug Allergy Active sulfamethoxazole / trimethoprim Bactrim([facility] Code:[address]-56) Hives Drug Allergy Active amoxicillin / clavulanate Augmentin([facility] Code:[address]-18) nausea, vomiting, blood in stools Drug Allergy Active ENCOUNTERS from 1985 to 2021-01-01 Encounter Location Date Provider Diagnosis [facility] [address] [place] [address] Dec, Yue Edwards IMMUNIZATIONS Vaccine Route Administration [...] Counseled the patient on smoking cessation, education [facility] ed 07/28/2019 REASON FOR REFERRAL No Information [...] every 6 hours as needed/MMD #4 Dr. Roth [facility] Active Chantix Starting Month Leo 0.5 MG X 11 & 1 MG X 42 as directed Orally as directed for 30 days Apr, Not-Taking Vitamin D (Cholecalciferol) 1000 UNIT 1 tablet Orally Once a day for 30 day(s) August, Active Flexeril 10 mg 1 tablet Orally-ortho twice a day/compen sation for 30 day(s) Dr. Gonzalez [place] Active Vitamin B-12 1000 MCG 1 tablet Orally Once a day for 30 day(s) Jul, Active Chantix Continuing Month Leo 1 MG 1 tab Orally Twice a day for 3 0 days Apr, Not-Taking PROCEDURES No Information RESULTS No Results REASON FOR VISIT + COVID MEDICAL (GENERAL) HISTORY Type Description Date Medical History Back injury September 2010 (Comp) Dr. Coelho Medical History migraines Medical History left thyroid nodule US 04/24 - s/p biopsy 08/2016 Medical History Depression Medical History Left shoulder pain - followe d by Dr. Gonzalez nelson (Comp) Surgical History 2006 Hospitalization History surgery related Goals Section No Information Health Concerns No Information MEDICAL EQUIPMENT No Information MENTAL STATUS No Information FUNCTIONAL STATUS No Information ASSESSMENTS No Information PLAN OF TREATMENT Next Appt Details Provider Name:Uli Cole, 08:20:00 AM, [address] [place] [address], [place], [address], Provider Name:Uli Cole, 09:30:00 AM, [address] [place] [address], [place], [address], Provider Name:Uli Cole, 01:20:00 PM, [address] [place] [address], [place], [address], Insurance Providers Payer Name Payer Address Payer Phone Insured Name Patient Relati onship to Insured Coverage Start Date Coverage End Date [facility] [address] [facility] [id number] CORRINA WOOD self
--- OUTSIDE RECORDS SUMMARY | 2021-02-16 06:20 | CCD ---
Author Author [facility] Organization [facility] Address Unknown Phone Unavailable Care Team Providers Care Bowling Ball Molder Name Role Phone Rajesh Edwards MD Unavailable Unavailable Rajesh Edwards MD Unavailable Unavailable Rajesh Edwards MD Unavailable Unavailable Rajesh Edwards MD Unavailable Unavailable Rajesh Edwards MD Unavailable Unavailable Rajesh Edwards MD Unavailable Unavailable Wetterhahn, Rajesh WILSON Unavailable Unavailable Wetterhahn, Rajesh WILSON Unavailable Unavailable Wetterhahn, Rajesh WILSON Unavailable Unavailable Wetterhahn, Rajesh WILSON Unavailable Unavailable Wetterhahn, Rajesh WILSON Unavailable Unavailable Wetterhahn, Rajesh WILSON Unavailable Unavailable Wetterhahn, Rajesh WILSON Unavailable Unavailable Wetterhahn, Rajesh WILSON Unavailable Unavailable Wetterhahn, Rajesh WILSON Unavailable Unavailable Wetterhahn, Rajesh WILSON Unavailable Unavailable Wetterhahn, Rajesh WILSON Unavailable Unavailable Wetterhahn, Rajesh WILSON Unavailable Unavailable Wetterhahn, Rajesh WILSON Unavailable Unavailable Wetterhahn, Rajesh WILSON Unavailable Unavailable Wetterhahn, Rajesh WILSON Unavailable Unavailable Wetterhahn, Rajesh WILSON Unavailable Unavailable Wetterhahn, Rajesh WILSON Unavailable Unavailable Wetterhahn, Rajesh WILSON Unavailable Unavailable Wetterhahn, Rajesh WILSON Unavailable Unavailable Wetterhahn, Rajesh WILSON Unavailable Unavailable Wetterhahn, Rajesh WILSON Unavailable Unavailable WetterhahnRajesh MD Unavailable Unavailable WetterhahnRajesh MD Unavailable Unavailable WetterhahnRajesh MD Unavailable Unavailable Wetterhahn, Rajesh WILSON Unavailable Unavailable Wetterhahn, Rajesh WILSON Unavailable Unavailable Wetterhahn, Rajesh WILSON Unavailable Unavailable Wetterhahn, Rajesh WILSON Unavailable Unavailable Wetterhahn, Rajesh WILSON Unavailable Unavailable Wetterhahn, Rajseh WILSON Unavailable Unavailable Wetterhahn, Rajesh WILSON Unavailable Unavailable Wetterhahn, Rajesh WILSON Unavailable Unavailable Wetterhahn, Rajesh WILSON Unavailable Unavailable Wetterhahn, Rajesh WILSON Unavailable Unavailable WetterhahnRajesh MD Unavailable Unavailable WetterhahnRajesh MD Unavailable Unavailable WetterhahnRajesh MD Unavailable Unavailable WetterhahnRajesh MD Unavailable Unavailable Wetterhahn, Rajesh WILSON Unavailable Unavailable Wetterhahn, Rajesh WILSON Unavailable Unavailable Wetterhahn, Rajesh WILSON Unavailable Unavailable WetterhahnRajesh MD Unavailable Unavailable WetterhahnRajesh MD Unavailable Unavailable WetterhahnRajesh MD Unavailable Unavailable Wetterhahn, Rajesh WILSON Unavailable Unavailable Wetterhahn, Rajesh WILSON Unavailable Unavailable Wetterhahn, Rajesh WILSON Unavailable Unavailable Wetterhahn, Rajesh WILSON Unavailable Unavailable WetterhahnRajesh MD Unavailable Unavailable WetterhahnRajesh MD Unavailable Unavailable WetterhahnRajesh MD Unavailable Unavailable WetterhahnRajesh MD Unavailable Unavailable WetterhahnRajesh MD Unavailable Unavailable WetterhahnRajesh MD Unavailable Unavailable WetterhahnRajesh MD Unavailable Unavailable Wetterhahn, Rajesh MD Unavailable Unavailable Wetterhahn, Rajesh MD Unavailable Unavailable Wetterhahn, Rajesh MD Unavailable Unavailable Wetterhahn, Rajesh MD Unavailable Unavailable Wetterhahn, Rajesh MD Unavailable Unavailable Wetterhahn, Rajesh MD Unavailable Unavailable Wetterhahn, Rajesh MD Unavailable Unavailable Wetterhahn, Rajesh MD Unavailable Unavailable Wetterhahn, Rajesh MD Unavailable Unavailable Wetterhahn, Rajesh MD Unavailable Unavailable Wetterhahn, Rajesh MD Unavailable Unavailable DiBella, P Damion MD Unavailable Unavailable DiBella, P Damion MD Unavailable Unavailable DiBella, P Damion MD Unavailable Unavailable DiBella, P Damion MD Unavailable Unavailable DiBella, P Damion MD Unavailable Unavailable DiBella, P Damion MD Unavailable Unavailable DiBella, P Damion MD Unavailable Unavailable DiBella, P Damion MD Unavailable Unavailable Re-disclosure Warning The records that you are about to access may contain information from federally-assisted alcohol or drug abuse programs. If such information is present, then the following federally mandated warning applies: This information has been disclosed to you from records protected by federal confidentiality rules (42 CFR part 2). The federal rules prohibit you from making any further disclosure of this information unless further disclosure is expressly permitted by the written consent of the person to whom it pertains or as otherwise permitted by 42 CFR part 2. A general authorization for the release of medical or other information is NOT sufficient for this purpose. The Federal rules restrict any use of the information to criminally investigate or prosecute any alcohol or drug abuse patient.The records that you are about to access may contain highly sensitive health information, the redisclosure of which is protected by Article 27-F of the [facility] Public Health law. If you continue you may have access to information: Regarding HIV / AIDS; Provided by facilities licensed or operated by the [facility] Office of Mental Health; or Provided by the [facility] Office for People With Developmental Disabilities. If such information is present, then the following [facility] mandated warning applies: This information has been disclosed to you from confidential records which are protected by state law. State law prohibits you from making any further disclosure of this information without the specific written consent of the person to whom it pertains, or as otherwise permitted by law. Any unauthorized further disclosure in violation of state law may result in a fine or fci sentence or both. A general authorization for the release of medical or other information is NOT sufficient authorization for further disc losure. Family History Family Member Name Family Member Gender Family Member Status Date o f Status Description Data Source(s) Unknown Male Problem MEDENT ([facility]) Unknown Male Problem MEDENT ([facility]) Unknown Unknown Problem MEDENT ([facility]) Encounters Encounter Providers Location Date Indications Data Source(s ) [place] [address] [address] 02/10/2021 12:00:00 AM EDT eCW1 ([facility] Outpatient [address] [facility] [place] [address] 02/06/2021 12:00:00 AM EDT [facility]CW1 [facility]) Emergency Attender: Damion ARMASeferrer: Dilcia Edwards MD EMERGENCY ROOM-ER 01/23/2021 11:55:00 AM EDT - 01/23/2021 01:40:00 PM [facility] Patient discharged. [place] [address] [address] 01/01/2021 12:00:00 AM EDT eCW1 [facility] [place] [address] [facility] [place] [address] 12/27/2020 12:00:00 AM EDT eCW1 [facility] [place] [address] [facility] [place] [address] 12/14/2020 12:00:00 AM EDT eCW1 [facility] [place] [address] [facility] [place] [address] 12/06/2020 12:00:00 AM EDT eCW1 ([facility] Outpatient [address] [facility] [place] [address] 12/01/2020 12:00:00 AM EDT eCW1 [facility] [place] [address] [facility] [place] [address] 12/01/2020 12:00:00 AM EDT eCW1 [facility] [place] [address] [facility] [place] [address] 09/28/2020 12:00:00 AM EDT eCW1 ([facility]) [place] [address] [address] 09/07/2020 12:00:00 AM EDT eCW1 ([facility]) Unknown [address] [address] 08/19/2020 12:00:00 AM EDT eCW1 ([facility]) ( PROC) WCenter Procedure [address] [place] [address] 08/17/2020 12:00:00 AM EDT eCW1 ([facility]) [place] [address] [address] 07/29/2020 12:00:00 AM EDT eCW1 ([facility]) [place] [address] [address] 05/03/2020 12:00:00 AM EST eCW1 ([facility]) TeleMedicine Est. Pt. Level 2 [address] [place] [address] 04/22/2020 12:00:00 AM EST eCW1 ([facility]) Unknown [address] [address] 04/22/2020 12:00:00 AM EST eCW1 ([facility]) Medications Medication Brand Name Start Date Product Form Dose Route Admi nistrative Instructions Pharmacy Instructions Status Indications Reaction Description Data Source(s) NITROFURANTOIN, MACROCRYSTALS 100 MG Ora l Capsule Nitrofurantoin Macrocrystal 100 MG Nitrofurantoin Macrocrystal 100 MG 02/08/2021 12:00:00 AM EDT active Nitrofurantoin Macrocrystal 100 MG eCW1 ([facility]) NITROFURANTOIN, MACROCRYSTALS 100 MG Ora l Capsule Nitrofurantoin Macrocrystal 100 MG Nitrofurantoin Macrocrystal 100 MG 02/08/2021 12:00:00 AM EDT active Nitrofurantoin Macrocrystal 100 MG eCW1 ([facility]) Doxycycline Monohydrate 100 MG Oral Capsule Doxycycline [place] hydrate 100 MG 07/29/2020 12:00:00 AM EDT 1.0 {capsule} suspend ed Doxycycline Monohydrate 100 MG eCW1 ([facility]) Doxycycline Monohydrate 100 MG Oral Capsule Doxycycline [place] hydrate 100 MG 07/29/2020 12:00:00 AM EDT 1.0 {capsule} suspend ed Doxycycline Monohydrate 100 MG eCW1 ([facility]) Doxycycline Monohydrate 100 MG Oral Capsule Doxycycline [place] hydrate 100 MG 07/29/2020 12:00:00 AM EDT 1.0 {capsule} active Doxycycline Monohydrate 100 MG eCW1 ([facility]) Doxycycline Monohydrate 100 MG Oral Capsule Doxycycline [place] hydrate 100 MG 07/29/2020 12:00:00 AM EDT 1.0 {capsule} suspend ed Doxycycline Monohydrate 100 MG eCW1 ([facility]) Doxycycline Monohydrate 100 MG Oral Capsule Doxycycline [place] hydrate 100 MG 07/29/2020 12:00:00 AM EDT 1.0 {capsule} suspend ed Doxycycline Monohydrate 100 MG eCW1 ([facility]) Doxycycline Monohydrate 100 MG Oral Capsule Doxycycline [place] hydrate 100 MG 07/29/2020 12:00:00 AM EDT 1.0 {capsule} suspend ed Doxycycline Monohydrate 100 MG eCW1 ([facility]) Doxycycline Monohydrate 100 MG Oral Capsule Doxycycline [place] hydrate 100 MG 07/29/2020 12:00:00 AM EDT 1.0 {capsule} suspend ed Doxycycline Monohydrate 100 MG eCW1 ([facility]) Doxycycline Monohydrate 100 MG Oral Capsule Doxycycline [place] hydrate 100 MG 07/29/2020 12:00:00 AM EDT 1.0 {capsule} suspend ed Doxycycline Monohydrate 100 MG eCW1 ([facility]) Doxycycline Monohydrate 100 MG Oral Capsule Doxycycline [place] hydrate 100 MG 07/29/2020 12:00:00 AM EDT 1.0 {capsule} suspend ed Doxycycline Monohydrate 100 MG eCW1 ([facility]) Doxycycline Monohydrate 100 MG Oral Capsule Doxycycline [place] hydrate 100 MG 07/29/2020 12:00:00 AM EDT 1.0 {capsule} suspend ed Doxycycline Monohydrate 100 MG eCW1 ([facility]) Doxycycline Monohydrate 100 MG Oral Capsule Doxycycline [place] hydrate 100 MG 07/29/2020 12:00:00 AM EDT 1.0 {capsule} suspend ed Doxycycline Monohydrate 100 MG eCW1 ([facility]) Doxycycline Monohydrate 100 MG Oral Capsule Doxycycline [place] hydrate 100 MG 07/29/2020 12:00:00 AM EDT 1.0 {capsule} suspend ed Doxycycline Monohydrate 100 MG eCW1 ([facility]) Doxycycline Monohydrate 100 MG Oral Capsule Doxycycline [place] hydrate 100 MG 07/29/2020 12:00:00 AM EDT 1.0 {capsule} suspend ed Doxycycline Monohydrate 100 MG eCW1 ([facility]) doxycycline hyclate 100 MG Oral Tablet Doxycycline Hyc late 100 MG Doxycycline Hyclate 100 MG 05/03/2020 12:00:00 AM EST 1.0 {tablet} suspended Doxycycline Hyclate 100 MG eCW1 ([facility]) Chantix Continuing Month Leo 1 MG Chantix Continuing Month P ak 1 MG 05/03/2020 12:00:00 AM EST active Chantix Continuing Month Leo 1 MG eCW1 ([facility]) Chantix Continuing Month Leo 1 MG Chantix Continuing Month P ak 1 MG 05/03/2020 12:00:00 AM EST suspended Chant ix Continuing Month Leo 1 MG eCW1 ([facility]) Chantix Starting Month Leo 0.5 MG X 11 & 1 MG X 42 Sarah ntix Starting Month Leo 0.5 MG X 11 & 1 MG X 42 05/03/2020 12:00:00 AM EST suspended Chantix Starting Month Leo 0.5 MG X 11 & 1 MG X 42 eCW1 ([facility]) Chantix Continuing Month Leo 1 MG Chantix Continuing Month P ak 1 MG 05/03/2020 12:00:00 AM EST suspended Chant ix Continuing Month Leo 1 MG eCW1 ([facility]) Chantix Starting Month Leo 0.5 MG X 11 & 1 MG X 42 Sarah ntix Starting Month Leo 0.5 MG X 11 & 1 MG X 42 05/03/2020 12:00:00 AM EST active Chantix Starting Month Leo 0.5 MG X 11 & 1 MG X 42 eCW1 ([facility]) Chantix Starting Month Leo 0.5 MG X 11 & 1 MG X 42 Sarah ntix Starting Month Leo 0.5 MG X 11 & 1 MG X 42 05/03/2020 12:00:00 AM EST suspended Chantix Starting Month Leo 0.5 MG X 11 & 1 MG X 42 eCW1 ([facility]) Chantix Continuing Month Leo 1 MG Chantix Continuing Month P ak 1 MG 05/03/2020 12:00:00 AM EST suspended Chant ix Continuing Month Leo 1 MG eCW1 ([facility]) Chantix Continuing Month Leo 1 MG Chantix Continuing Month P ak 1 MG 05/03/2020 12:00:00 AM EST suspended Chant ix Continuing Month Leo 1 MG eCW1 ([facility]) doxycycline hyclate 100 MG Oral Tablet Doxycycline Hyc late 100 MG Doxycycline Hyclate 100 MG 05/03/2020 12:00:00 AM EST 1.0 {tablet} suspended Doxycycline Hyclate 100 MG eCW1 ([facility]) Chantix Continuing Month Leo 1 MG Chantix Continuing Month P ak 1 MG 05/03/2020 12:00:00 AM EST suspended Chant ix Continuing Month Leo 1 MG eCW1 ([facility]) Chantix Continuing Month Leo 1 MG Chantix Continuing Month P ak 1 MG 05/03/2020 12:00:00 AM EST suspended Chant ix Continuing Month Leo 1 MG eCW1 ([facility]) doxycycline hyclate 100 MG Oral Tablet Doxycycline Hyc late 100 MG Doxycycline Hyclate 100 MG 05/03/2020 12:00:00 AM EST 1.0 {tablet} suspended Doxycycline Hyclate 100 MG eCW1 ([facility]) Chantix Continuing Month Leo 1 MG Chantix Continuing Month P ak 1 MG 05/03/2020 12:00:00 AM EST suspended Chant ix Continuing Month Leo 1 MG eCW1 ([facility]) Chantix Starting Month Leo 0.5 MG X 11 & 1 MG X 42 Sarah ntix Starting Month Leo 0.5 MG X 11 & 1 MG X 42 05/03/2020 12:00:00 AM EST suspended Chantix Starting Month Leo 0.5 MG X 11 & 1 MG X 42 eCW1 ([facility]) doxycycline hyclate 100 MG Oral Tablet Doxycycline Hyc late 100 MG Doxycycline Hyclate 100 MG 05/03/2020 12:00:00 AM EST 1.0 {tablet} suspended Doxycycline Hyclate 100 MG eCW1 ([facility]) Chantix Starting Month Leo 0.5 MG X 11 & 1 MG X 42 Sarah ntix Starting Month Leo 0.5 MG X 11 & 1 MG X 42 05/03/2020 12:00:00 AM EST suspended Chantix Starting Month Leo 0.5 MG X 11 & 1 MG X 42 eCW1 ([facility]) doxycycline hyclate 100 MG Oral Tablet Doxycycline Hyc late 100 MG Doxycycline Hyclate 100 MG 05/03/2020 12:00:00 AM EST 1.0 {tablet} suspended Doxycycline Hyclate 100 MG eCW1 ([facility]) Chantix Starting Month Leo 0.5 MG X 11 & 1 MG X 42 Sarah ntix Starting Month Leo 0.5 MG X 11 & 1 MG X 42 05/03/2020 12:00:00 AM EST suspended Chantix Starting Month Leo 0.5 MG X 11 & 1 MG X 42 eCW1 ([facility]) doxycycline hyclate 100 MG Oral Tablet Doxycycline Hyc late 100 MG Doxycycline Hyclate 100 MG 05/03/2020 12:00:00 AM EST 1.0 {tablet} suspended Doxycycline Hyclate 100 MG eCW1 ([facility]) Chantix Continuing Month Leo 1 MG Chantix Continuing Month P ak 1 MG 05/03/2020 12:00:00 AM EST suspended Chant ix Continuing Month Leo 1 MG eCW1 ([facility]) doxycycline hyclate 100 MG Oral Tablet Doxycycline Hyc late 100 MG Doxycycline Hyclate 100 MG 05/03/2020 12:00:00 AM EST 1.0 {tablet} active Doxycycline Hyclate 100 MG eCW1 ([facility]) Chantix Continuing Month Leo 1 MG Chantix Continuing Month P ak 1 MG 05/03/2020 12:00:00 AM EST suspended Chant ix Continuing Month Leo 1 MG eCW1 ([facility]) Chantix Starting Month Leo 0.5 MG X 11 & 1 MG X 42 Sarah ntix Starting Month Leo 0.5 MG X 11 & 1 MG X 42 05/03/2020 12:00:00 AM EST suspended Chantix Starting Month Leo 0.5 MG X 11 & 1 MG X 42 eCW1 ([facility]) doxycycline hyclate 100 MG Oral Tablet Doxycycline Hyc late 100 MG Doxycycline Hyclate 100 MG 05/03/2020 12:00:00 AM EST 1.0 {tablet} suspended Doxycycline Hyclate 100 MG eCW1 ([facility]) Chantix Starting Month Leo 0.5 MG X 11 & 1 MG X 42 Sarah ntix Starting Month Leo 0.5 MG X 11 & 1 MG X 42 05/03/2020 12:00:00 AM EST suspended Chantix Starting Month Leo 0.5 MG X 11 & 1 MG X 42 eCW1 ([facility]) doxycycline hyclate 100 MG Oral Tablet Doxycycline Hyc late 100 MG Doxycycline Hyclate 100 MG 05/03/2020 12:00:00 AM EST 1.0 {tablet} suspended Doxycycline Hyclate 100 MG eCW1 ([facility]) Chantix Starting Month Leo 0.5 MG X 11 & 1 MG X 42 Sarah ntix Starting Month Leo 0.5 MG X 11 & 1 MG X 42 05/03/2020 12:00:00 AM EST suspended Chantix Starting Month Leo 0.5 MG X 11 & 1 MG X 42 eCW1 ([facility]) Chantix Continuing Month Leo 1 MG Chantix Continuing Month P ak 1 MG 05/03/2020 12:00:00 AM EST active Chantix Continuing Month Leo 1 MG eCW1 ([facility]) Chantix Starting Month Leo 0.5 MG X 11 & 1 MG X 42 Sarah ntix Starting Month Leo 0.5 MG X 11 & 1 MG X 42 05/03/2020 12:00:00 AM EST suspended Chantix Starting Month Leo 0.5 MG X 11 & 1 MG X 42 eCW1 ([facility]) Chantix Continuing Month Leo 1 MG Chantix Continuing Month P ak 1 MG 05/03/2020 12:00:00 AM EST suspended Chant ix Continuing Month Leo 1 MG eCW1 ([facility]) Chantix Continuing Month Leo 1 MG Chantix Continuing Month P ak 1 MG 05/03/2020 12:00:00 AM EST suspended Chant ix Continuing Month Leo 1 MG eCW1 ([facility]) doxycycline hyclate 100 MG Oral Tablet Doxycycline Hyc late 100 MG Doxycycline Hyclate 100 MG 05/03/2020 12:00:00 AM EST 1.0 {tablet} active Doxycycline Hyclate 100 MG eCW1 ([facility]) doxycycline hyclate 100 MG Oral Tablet Doxycycline Hyc late 100 MG Doxycycline Hyclate 100 MG 05/03/2020 12:00:00 AM EST 1.0 {tablet} suspended Doxycycline Hyclate 100 MG eCW1 ([facility]) doxycycline hyclate 100 MG Oral Tablet Doxycycline Hyc late 100 MG Doxycycline Hyclate 100 MG 05/03/2020 12:00:00 AM EST 1.0 {tablet} suspended Doxycycline Hyclate 100 MG eCW1 ([facility]) Chantix Starting Month Leo 0.5 MG X 11 & 1 MG X 42 Sarah ntix Starting Month Leo 0.5 MG X 11 & 1 MG X 42 05/03/2020 12:00:00 AM EST suspended Chantix Starting Month Leo 0.5 MG X 11 & 1 MG X 42 eCW1 ([facility]) Chantix Starting Month Leo 0.5 MG X 11 & 1 MG X 42 Sarah ntix Starting Month Leo 0.5 MG X 11 & 1 MG X 42 05/03/2020 12:00:00 AM EST suspended Chantix Starting Month Leo 0.5 MG X 11 & 1 MG X 42 eCW1 ([facility]) Chantix Starting Month Leo 0.5 MG X 11 & 1 MG X 42 Sarah ntix Starting Month Leo 0.5 MG X 11 & 1 MG X 42 05/03/2020 12:00:00 AM EST suspended Chantix Starting Month Leo 0.5 MG X 11 & 1 MG X 42 eCW1 ([facility]) Chantix Starting Month Leo 0.5 MG X 11 & 1 MG X 42 Sarah ntix Starting Month Leo 0.5 MG X 11 & 1 MG X 42 05/03/2020 12:00:00 AM EST active Chantix Starting Month Leo 0.5 MG X 11 & 1 MG X 42 eCW1 ([facility]) Chantix Continuing Month Elo 1 MG Chantix Continuing Month P ak 1 MG 05/03/2020 12:00:00 AM EST suspended Chant ix Continuing Month Leo 1 MG eCW1 ([facility]) Chantix Continuing Month Leo 1 MG Chantix Continuing Month P ak 1 MG 05/03/2020 12:00:00 AM EST suspended Chant ix Continuing Month Leo 1 MG eCW1 ([facility]) doxycycline hyclate 100 MG Oral Tablet Doxycycline Hyc late 100 MG Doxycycline Hyclate 100 MG 05/03/2020 12:00:00 AM EST 1.0 {tablet} suspended Doxycycline Hyclate 100 MG eCW1 ([facility]) Chantix Starting Month Leo 0.5 MG X 11 & 1 MG X 42 Sarah ntix Starting Month Leo 0.5 MG X 11 & 1 MG X 42 05/03/2020 12:00:00 AM EST suspended Chantix Starting Month Leo 0.5 MG X 11 & 1 MG X 42 eCW1 ([facility]) doxycycline hyclate 100 MG Oral Tablet Doxycycline Hyc late 100 MG Doxycycline Hyclate 100 MG 05/03/2020 12:00:00 AM EST 1.0 {tablet} suspended Doxycycline Hyclate 100 MG eCW1 ([facility]) doxycycline hyclate 100 MG Oral Tablet Doxycycline Hyc late 100 MG Doxycycline Hyclate 100 MG 05/03/2020 12:00:00 AM EST 1.0 {tablet} suspended Doxycycline Hyclate 100 MG eCW1 ([facility]) Insurance Providers Payer name Policy type / Coverage type Policy ID Covered democrat ID Covered democrat's relationship to caputo Policy Caputo Plan Information [employer] Ins () Workers Compensation [id number] Self [id number] [employer] () Workers Compensation [id number] Self [id number] [employer] () Workers Compensation [id number] Self [id number] [facility] () Workers Compensation [id number] Self [id number] ON LICENSE OF [facility] INS [facility] W [id number] Empl [id number] ON LICENSE OF [facility] INS [facility] W [id number] Empl [id number] [facility] W [id number] Empl 6 [id number] [facility] O [id number] MEDICAID [id number] SP [id number] ANSI-Medicaid [id number] ANSI-Commercial [id number] ANSI-Medicaid [id number] ANSI-Not a Secondary Insurance [id number] ANSI-Commercial [id number] ANSI-Medicaid [id number] ANSI-Not a Secondary Insurance [id number] ANSI-Medicaid [id number] ANSI-Medicaid [id number] ANSI-Commercial [id number] ANSI-Not a Secondary Insurance [id number] ANSI-Medicaid [id number] ANSI-Not a Secondary Insurance [id number] ANSI-Medicaid [id number] ANSI-Medicaid [id number] ANSI-Commercial [id number] ANSI-Medicaid [id number] ANSI-Commercial [id number] ANSI-Not a Secondary Insurance [id number] ANSI-Commercial [id number] ANSI-Medicaid [id number] ANSI-Commercial [id number] ANSI-Commercial [id number] ANSI-Not a Secondary Insurance [id number] ANSI-Medicaid [id number] ANSI-Commercial [id number] ANSI-Commercial [id number] ANSI-Not a Secondary Insurance [id number] [employer] [id number] SP [id number] [employer] [id number] SP [id number] [employer] (pr) Commercial [id number] Self [id number] [facility] O [id number] S [id number] [facility] COMMUNITY [facility] XIX [id number] 18 [id number] [facility] Health Maintenance Organization (HMO) [id number] Self [id number] [employer] [facility] (pr) Commercial [id number] Self [id number] [employer] [facility] Health Maintenance Organization (HMO) [id number] Self [id number] [facility] Health Maintenance Organization (HMO) [id number] Self [id number] [facility] Health Maintenance Organization (HMO) [id number] Self [id number] [employer] [facility] Health Maintenance Organization (HMO) [id number] Self [id number] [employer] [facility] (pr) Commercial [id number] Self [id number] [employer] [facility] (pr) Commercial [id number] Self [id number] [facility] HEALTH CARE [id number] SP [id number] [facility] HEALTH CARE [id number] SP [id number] [facility] Medicaid Commercial [id number] Self [id number] [facility] Commercial [id number] .[id number] Self [id number] [facility] Commercial [id number] .[id number] Self [id number] [facility] Commercial [id number] Self [id number] [facility] HEALTH CARE O [id number] S [id number] STATE INSURANCE FUND O [id number] S [id number] SELF PAY UNAVAILABLE SP UNAVAILA BLE STATE INSURANCE FUND O [id number] S [id number] STATE INSURANCE FUND [id number] SP [id number] OTHER WORKERS COMPENSATI P [id number] S [id number] OTHER WORKERS COMPENSATION [id number] SP [id number] [facility] NOTFORTODAYSVISIT SP NOTFORTODAYSVISIT [facility] [id number] SP [id number] [facility] [id number] SP [id number] [facility] HEALTHCARE [facility] [id number] S [id number] SELF PAY ONLY UNAVAILABLE UNAV AILABLE SELF PAY ONLY [id number] [facility] COMMUNITY PLAN [facility] [id number] SP [id number] [facility] COMMUNITY [facility]AN [facility] [id number] SP [id number] Problems, Conditions, and Diagnoses Code Display Name Description Problem Type Effective Dates Data Source(s) Y93.01 Activity, walking, marching and hiking A CTIVITY, WALKING, MARCHING AND HIKING Diagnosis 01/23/2021 11:55:00 AM [facility] l Y92.[address] in unspeci fied non-institutional (private) residence as the place of occurrence of the external cause UNSP PLACE IN UNSP NON-INSTITUT (PRIVATE) RESIDENC Diagnosis 01/23/2021 11:55:00 AM [facility] l W01.0XXA Fall on same level from slip ping, tripping and stumbling without subsequent striking against object, initial encounter FALL SAME LEV FROM SLIP/TRIP W/O STRIKE AGAINST OB Diagnosis 01/23/2021 11:55:00 AM [facility] 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 ospital M79.605 Pain in left leg PAIN IN LEFT LEG Diagnosis 01/23/2021 11 :55:00 AM [facility] S40.012A Contusion of left shoulder, initial enco unter CONTUSION OF LEFT SHOULDER, INITIAL ENCOUNTER Diagnosis 01/23/2021 11:55:00 AM [facility] S30.0XXA Contusion of lower back and pelvis, init ial encounter CONTUSION OF LOWER BACK AND PELVIS, INITIAL ENCOUN Diagnosis 01/23/2021 11:55:00 AM [facility] S49.92XA Unspecified injury of left shoulder and upper arm, initial encounter UNSP INJURY OF LEFT SHOULDER AND UPPER ARM, INIT ENCNTR Diagnosis 01/23/2021 11:55:00 AM [facility] N94.89 [id number] Endometrial mass Problem 02/06/2021 12:0 0:00 AM EDT eCW1 ([facility]) N93.0 [id number] Postcoital bleeding Problem 07/29/2020 12:00 :00 AM EDT eCW1 ([facility]) N93.9 [id number] Abnormal uterine bleeding Problem 07/29/2020 12:00:00 AM EDT eCW1 ([facility]) Surgeries/Procedures No Information Results ID Date Data Source [id number] 01/23/2021 01:45:00 PM EDT [facility] Patient: ISRAEL, CORRINA Observation [facility]VisitID: [id number] [place] [address] [phone], FRegistration Date/Time: 01/23/2021 10:45 Weight:117.9 kg (S). Height/Length:64 inches (S). BMI:44.6 (Electronically signed by Damion Avery MD 01/23/2021 13:35) Name Value Range Interpretation Code Description Data Florence rce(s) Supporting Document(s) ID Date Data Source [id number] 01/23/2021 01:23:00 PM EDT [facility] DATE OF EXAMINATION: 01/23/2021 11:41 ED T HISTORY: Trauma TECHNIQUE: 4 views of the sacrum coccyx were obtained. FINDINGS: There is normal alignment and position of the bones of the sacrum and coccyx. Noevidence for fracture or any other abnormalities can be noted. IMPRESSION: Unremarkable sacrum and coccyx exam. Electronically signed in PS360 by: Chilo Jo M.D. 01/23/2021 13:17 EDT Name Value Range Interpretation Code Description Data Florence rce(s) Supporting Document(s) ID Date Data Source [id number] 01/23/2021 01:22:00 PM EDT [facility] DATE OF EXAMINATION: 01/23/2021 11:40 ED T HISTORY: Trauma TECHNIQUE: 4 views of the lumbar spine were obtained. FINDINGS: No evidence of acute fracture or subluxation. Lumbar alignment is normal withnormal lordosis. Disc spaces and vertebral body heights are maintained. Noaggressive osseous lesions or erosions. Bone mineral density is unremarkable.Sacroiliac joints appear normal. Visualized soft tissues are normal. IMPRESSION: No evidence of acute fracture or subluxation of the lumbar spine. Electronically signed in PS360 by: Chilo Jo M.D. 01/23/2021 13:17 EDT Name Value Range Interpretation Code Description Data Florence rce(s) Supporting Document(s) ID Date Data Source [id number] 01/23/2021 01:22:00 PM EDT [facility] l DATE OF EXAMINATION: 01/23/2021 11:43 ED T HISTORY: Trauma TECHNIQUE: 2 views of the left tib-fib were obtained. FINDINGS: There is normal alignment and position of the bones of the lower leg. No bonyabnormalities are identified and soft tissues appear normal. IMPRESSION: Unremarkable tib-fib. Electronically signed in PS360 by: Chilo Jo M.D. 01/23/2021 13:16 EDT Name Value Range Interpretation Code Description Data [facility](s) Supporting Document(s) ID Date Data Source [id number] 01/23/2021 01:22:00 PM EDT [facility] l DATE OF EXAMINATION: 01/23/2021 11:41 ED T HISTORY: Trauma pain TECHNIQUE: 8 views of the cervical spine were obtained. FINDINGS: Routine views show no evidence of fracture or dislocation. The vertebral bodiesand disc spaces are well-maintained. The pedicles and posterior elements areintact. The prespinal soft tissues appear normal. IMPRESSION: Unremarkable cervical spine exam. Electronically signed in PS360 by: Chilo Jo M.D. 01/23/2021 13:16 EDT Name Value Range Interpretation Code Description Data Florence rce(s) Supporting Document(s) ID Date Data Source [id number] 01/23/2021 12:08:00 PM [facility]T [facility] [id number] Name Value Range Interpretation Code Description Data Florence rce(s) Supporting Document(s) HCG,SERUM NEGATIVE NEGATIVE [facility] False negative results may occur when th e levels of hCG arebelow the sensitivity level of the test. If isstill suspected, a first morning urine specimen should becollected 48hrs later.This test has a sensitivity of 10mIU/mL in serum zfg18vLD/mL in urine. ID Date Data Source [id number] 12/28/2020 11:40:00 AM EDT [facility] Name Value Range Interpretation Code Description Data Florence rce(s) Supporting Document(s) SARS-CoV-2 (COVID-19) RNA [Presence] in Respiratory specimen by JACQUE with probe detection Positive for 2019-nCoV [facility] This lab was ordered by [facility] and reported by [employer] ID Date Data Source Pathology Request For Service 08/17/2020 12:00:00 AM EDT eCW 1 ([facility]) Name Value Range Interpretation Code Description Data Florence rce(s) Supporting Document(s) GENITOURINARY eCW1 ([facility]) ID Date Data Source TSH 07/29/2020 12:00:00 AM EDT eCW1 ([facility]) Name Value Range Interpretation Code Description Data Florence rce(s) Supporting Document(s) 0.844 0.358-3.740 THYROID STIMULATING HORM ONE eCW1 ([facility]) ID Date Data Source CBC - Complete Blood Count 07/29/2020 12:00:00 AM EDT eCW1 ( [facility]) Name Value Range Interpretation Code Description Data Florence rce(s) Supporting Document(s) 17.2 4.0-10.0 WHITE BLOOD COUNT eCW1 ([facility]) 5.53 4.00-5.40 RED BLOOD COUNT eCW1 ([facility]) 13.8 12.0-15.5 HEMOGLOBIN eCW1 ([facility]) 25.0 27.0-33.0 MEAN CORPUSCULAR HEMOGLOB IN eCW1 ([facility]) 45.3 36.0-47.0 HEMATOCRIT eCW1 ([facility]) 81.9 80.0-96.0 MEAN CORPUSCULAR VOLUME e CW1 ([facility]) 15.4 11.5-14.5 RED CELL DISTRIBUTION WID TH eCW1 ([facility]) 381 150-450 PLATELET COUNT, AUTOMATED eCW1 ([facility]) 30.5 32.0-36.5 MEAN CORPUSCULAR HGB CONC eCW1 ([facility]) ID Date Data Source [id number] 07/15/2020 12:00:00 AM EDT [facility] Name Value Range Interpretation Code Description Data Florence rce(s) Supporting Document(s) SARS-CoV-2 (COVID-19) RNA [Presence] in Respiratory specimen by JACQUE with probe detection Not Detected [facility] This lab was ordered by [facility] and reported by [employer] ID Date Data Source [id number] 06/10/2020 01:45:00 PM EST [facility] Name Value Range Interpretation Code Description Data Florence rce(s) Supporting Document(s) SARS coronavirus 2 RNA Not Detected [facility] [place] This lab was ordered by [facility] and reported by [employer]. ID Date Data Source RUBEOLA IgG ANTIBODY 05/03/2020 12:00:00 AM EST eCW1 ([facility]) Name Value Range Interpretation Code Description Data Florence rce(s) Supporting Document(s) 86.8 Immune >16.4 RUBEOLA IgG ANTIBODY eC W1 ([facility]) ID Date Data Source RUBELLA IMMUNE STATUS IgG 05/03/2020 12:00:00 AM EST eCW1 ([facility]) Name Value Range Interpretation Code Description Data Florence rce(s) Supporting Document(s) IMMUNE IMMUNE RUBELLA IgG QUALITATIVE eCW1 ( [facility]) ID Date Data Source [id number] 04/22/2020 10:00:00 AM EST [facility] Name Value Range Interpretation Code Description Data Florence rce(s) Supporting Document(s) SARS coronavirus 2 RNA Not Detected [facility] [place] This lab was ordered by [facility] and reported by [facility]. ID Date Data Source [id number] 04/18/2020 12:30:00 PM EST [facility] Name Value Range Interpretation Code Description Data Florence rce(s) Supporting Document(s) SARS coronavirus 2 RNA Not Detected [facility] [place] This lab was ordered by [facility] and reported by [facility]. Procedure Social History Code Duration Value Status Description Data Source(s ) Smoking 02/08/2021 12:00:00 AM EDT Current Smoker completed Curre nt Smoker eCW1 ([facility]) Smoking 02/08/2021 12:00:00 AM EDT Current Smoker completed Curre nt Smoker eCW1 ([facility]) Smoking 12/28/2020 12:00:00 AM EDT Current Smoker completed Curre nt Smoker eCW1 ([facility]) Smoking 12/01/2020 12:00:00 AM EDT Current Smoker completed Curre nt Smoker eCW1 ([facility]) Smoking 12/01/2020 12:00:00 AM EDT Current Smoker completed Curre nt Smoker eCW1 ([facility]) Smoking 12/01/2020 12:00:00 AM EDT Current Smoker completed Curre nt Smoker eCW1 ([facility]) Smoking 12/01/2020 12:00:00 AM EDT Current Smoker completed Curre nt Smoker eCW1 ([facility]) Smoking 12/01/2020 12:00:00 AM EDT Current Smoker completed Curre nt Smoker eCW1 ([facility]) Smoking 08/17/2020 12:00:00 AM EDT Current Smoker completed Curre nt Smoker eCW1 ([facility]) Smoking 08/17/2020 12:00:00 AM EDT Current Smoker completed Curre nt Smoker eCW1 ([facility]) Smoking 08/17/2020 12:00:00 AM EDT Current Smoker completed Curre nt Smoker eCW1 ([facility]) Smoking 08/17/2020 12:00:00 AM EDT Current Smoker completed Curre nt Smoker eCW1 ([facility]) Smoking 07/29/2020 12:00:00 AM EDT Current Smoker completed Curre nt Smoker eCW1 ([facility]) Smoking 05/03/2020 12:00:00 AM EST Current Smoker completed Curre nt Smoker eCW1 ([facility]) Smoking 05/03/2020 12:00:00 AM EST Current Smoker completed Curre nt Smoker eCW1 ([facility]) Vital Signs ID Date Data Source UNK Name Value Range Interpretation Code Description Data Source(s) Body weight 256 [lb_av] 256 [lb_av] eCW1 ([facility]) Body height 63 [in_i] 63 [in_i] eCW1 ([facility]) Body mass index (BMI) [Ratio] 45.34 kg/m2 45.34 kg/m2 eCW1 ([facility]) Systolic blood pressure 142 mm[Hg] 142 mm[Hg] e CW1 ([facility]) Diastolic blood pressure 78 mm[Hg] 78 mm[Hg] eCW1 ([facility]) Body weight 266 [lb_av] 266 [lb_av] eCW1 ([facility]) Body height 63 [in_i] 63 [in_i] eCW1 ([facility]) Body mass index (BMI) [Ratio] 47.11 kg/m2 47.11 kg/m2 W1 ([facility]) Respiratory rate 18 /min 18 /min eCW1 ([facility]) Body temperature 97.7 [degF] 97.7 [degF] eCW1 ( [facility]) Systolic blood pressure 142 mm[Hg] 142 mm[Hg] e CW1 ([facility]) Diastolic blood pressure 84 mm[Hg] 84 mm[Hg] eCW1 ([facility]) Body weight 280 [lb_av] 280 [lb_av] eCW1 ([facility]) Body height 63 [in_i] 63 [in_i] eCW1 ([facility]) Body mass index (BMI) [Ratio] 49.59 kg/m2 49.59 kg/m2 eCW1 ([facility]) Systolic blood pressure 158 mm[Hg] 158 mm[Hg] e CW1 ([facility]) Diastolic blood pressure 84 mm[Hg] 84 mm[Hg] eCW1 ([facility]) Body weight 178.4 [lb_av] 178.4 [lb_av] eCW1 ([facility]) Body height 63 [in_i] 63 [in_i] eCW1 ([facility]) Body mass index (BMI) [Ratio] 31.6 kg/m2 31.6 k g/m2 eCW1 ([facility]) Systolic blood pressure 134 mm[Hg] 134 mm[Hg] e CW1 ([facility]) Diastolic blood pressure 80 mm[Hg] 80 mm[Hg] eCW1 ([facility]) Body height 63 [in_i] 63 [in_i] eCW1 ([facility]) Body weight 279 [lb_av] 279 [lb_av] eCW1 ([facility]) Body mass index (BMI) [Ratio] 49.42 kg/m2 49.42 kg/m2 eCW1 ([facility]) Heart rate 107 /min 107 /min eCW1 ([facility]) Respiratory rate 18 /min 18 /min eCW1 ([facility]) Body temperature 99.9 [degF] 99.9 [degF] eCW1 ( [facility]) Systolic blood pressure 130 mm[Hg] 130 mm[Hg] e CW1 ([facility]) Diastolic blood pressure 80 mm[Hg] 80 mm[Hg] eCW1 ([facility]) Patient Treatment Plan of Care Planned Activity Planned Date Details Description Data Source (s) NITROFURANTOIN, MACROCRYSTALS 100 MG Oral Capsule 02/08/2021 12: 00:00 AM EDT eCW1 ([facility]) NITROFURANTOIN, MACROCRYSTALS 100 MG Oral Capsule 02/08/2021 12: 00:00 AM EDT eCW1 ([facility]) Doxycycline Monohydrate 100 MG Oral Capsule 07/29/2020 12:00:00 AM EDT eCW1 ([facility]) Chantix Starting Month Leo 0.5 MG X 11 & 1 MG X 42 05/03/2020 12 :00:00 AM EST eCW1 ([facility]) Chantix Continuing Month Leo 1 MG 05/03/2020 12:00:00 AM EST eCW1 ([facility]) doxycycline hyclate 100 MG Oral Tablet 05/03/2020 12:00:00 AM EST eCW1 ([facility]) Chantix Starting Month Leo 0.5 MG X 11 & 1 MG X 42 05/03/2020 12 :00:00 AM EST eCW1 ([facility]) Chantix Continuing Month Leo 1 MG 05/03/2020 12:00:00 AM EST eCW1 ([facility]) doxycycline hyclate 100 MG Oral Tablet 05/03/2020 12:00:00 AM EST eCW1 ([facility])
--- OUTSIDE RECORDS SUMMARY | 2021-02-16 06:20 | CCD ---
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 Role Phone Uli Cole Unavailable PROBLEMS Type Condition ICD9-CM Code ESH61-GZ Code Onset Dates Condition S tatus W/U Status Risk SNOMED Code Notes Problem Thyroid nodule E04.1 Active confirmed 99165 5005 Problem Obesity (BMI 35.0-39.9 without comorbidity) E66.9 Active confirmed 891110994 Problem Essential hypertension I10 Active confirmed 89014774 Problem Dysmenorrhea, unspecified N94.6 Active confirmed 431902005 Problem BMI 50.0-59.9, adult Z68.43 Active confirmed 566641478 Problem Vitamin D deficiency E55.9 Active confirmed 98287842 Problem Restless leg syndrome G25.81 Active confirmed 51511063 Problem Adjustment disorder with depressed mood F43.21 Active confirmed 79502491 Problem Morbid obesity E66.01 Active confirmed 23626 6002 Problem Abnormal uterine bleeding N93.9 Active confirmed 14911871068274 Problem Daytime somnolence R40.0 Active confirmed 1 41588234799 Problem Postcoital bleeding N93.0 Active confirmed 13831693 Problem Left thyroid nodule E04.1 Active confirmed 305294752 Problem B12 deficiency E53.8 Active confirmed 51491 4004 Problem Cigarette nicotine dependence without complication F17.210 Active confirmed 32562040 Problem Current moderate episode of major depressive disorder without prior episode F32.1 Active confirmed 65529042 Problem Intractable migraine with aura with status migrainosus G43.111 Active confirmed 456154051 ALLERGIES Allergen (clinical drug ingredient) Drug/Non Drug Allergy do cumented on EMR Reaction Allergy Type Onset Date Status sulfamethoxazole / trimethoprim Bactrim([facility] Code:[address]-95) Hives Drug Allergy Active Sulfa (for allergy use only) Hives Drug Allergy Active amoxicillin / clavulanate Augmentin([facility] Code:[address]-91) nausea, vomiting, blood in stools Drug Allergy Active ENCOUNTERS from 1985 to 2020-12-14 Encounter Location Date Provider Diagnosis [facility] [address] [facility] [phone] [place] [address] 08 Dec, 2020 Uli Cole Positive t est Z32.01 IMMUNIZATIONS Vaccine Route Administration Date Status TDAP [...] Counseled the patient on smoking cessation, education [facility] ed 07/28/2019 REASON FOR REFERRAL No Information [...] 6 hours as needed/MMD #4 Dr. Roth [facility] Active Chantix Starting Month Leo 0.5 MG [...] Information RESULTS No Results REASON FOR VISIT quant MEDICAL (GENERAL) HISTORY Type Description Date Medical History Back injury September 2010 (Comp) Dr. Coelho Medical History migraines Medical History left thyroid nodule US 04/24 - s/p biopsy 08/2016 Medical History Depression Medical History Left shoulder pain - followe d by Dr. Gonzalez nelson (Comp) Surgical History 2005 Hospitalization History surgery related Goals Section No Information Health Concerns No Information MEDICAL EQUIPMENT No Information MENTAL STATUS No Information FUNCTIONAL STATUS No Information ASSESSMENTS Encounter Date Diagnosis Assessment Notes Treatment Notes Treatm ent Clinical Notes Dec, Positive test (ICD-10 - Z32.01) PLAN OF TREATMENT Treatment Notes Test Name Order Date HCG, SERUM QUANTITATIVE 2020-12-14 Next Appt Details Provider Name:Uli Cole, 08:20:00 AM, [address] [place] [address], [place], [address], Provider Name:Uli Cole, 09:30:00 AM, [address] [place] [address], [place], [address], Provider Name:Uli Cole, 01:20:00 PM, [address] [place] [address], [place], [address], Insurance Providers Payer Name Payer Address Payer Phone Insured Name Patient Relati onship to Insured Coverage Start Date Coverage End Date [facility] [address] [place] [phone] [employer] self
--- OUTSIDE RECORDS SUMMARY | 2021-02-16 06:20 | CCD ---
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 Phone Malia Auguste Unavailable PROBLEMS Type Condition ICD9-CM Code [id number] Code Onset Dates Condition S tatus W/U Status Risk SNOMED Code Notes Problem Thyroid nodule E04.1 Active confirmed 92226 5005 Problem Obesity (BMI 35.0-39.9 without comorbidity) E66.9 Active confirmed 987837945 Problem Essential hypertension I10 Active confirmed 35260890 Problem Dysmenorrhea, unspecified N94.6 Active confirmed 136112269 Problem BMI 50.0-59.9, adult Z68.43 Active confirmed 491327273 Problem Vitamin D deficiency E55.9 Active confirmed 38773100 Problem Restless leg syndrome G25.81 Active confirmed 61964602 Problem Adjustment disorder with depressed mood F43.21 Active confirmed 21165771 Problem Morbid obesity E66.01 Active confirmed 22541 6002 Problem Abnormal uterine bleeding N93.9 Active confirmed 18549430043102 Problem Daytime somnolence R40.0 Active confirmed 1 78290774447 Problem Postcoital bleeding N93.0 Active confirmed 66112208 Problem Left thyroid nodule E04.1 Active confirmed 200206693 Problem B12 deficiency E53.8 Active confirmed 40198 4004 Problem Cigarette nicotine dependence without complication F17.210 Active confirmed 12096023 Problem Current moderate episode of major depressive disorder without prior episode F32.1 Active confirmed 98239125 Problem Intractable migraine with aura with status migrainosus G43.111 Active confirmed 202155031 ALLERGIES Allergen (clinical drug ingredient) Drug/Non Drug Allergy do cumented on EMR Reaction Allergy Type Onset Date Status sulfamethoxazole / trimethoprim Bactrim([facility] Code:[address]-37) Hives Drug Allergy Active Sulfa (for allergy use only) Hives Drug Allergy Active amoxicillin / clavulanate Augmentin([facility] Code:[address]-71) nausea, vomiting, blood in stools Drug Allergy Active ENCOUNTERS from 1985 to 2020-12-15 Encounter Location Date Provider Diagnosis [facility] [address] [place] [address] Nov, Malia Eder-Tartell Injury of right foot, initial encounter S99.921A and Contusion of right lower leg, initial encounter S80.11XA IMMUNIZATIONS Vaccine Route Administration Date Status TDAP [...] REASON FOR REFERRAL No Information VITAL SIGNS Weight 266 lbs Nov, Height 63 in Nov, BMI 47.11 kg/m2 Nov, Respiratory Rate 18 /min Nov, Temperature 97.7 degrees Fahrenheit Nov, Oximetry 97 Nov, Blood pressure systolic 142 mm Hg Nov, Blood pressure diastolic 84 mm Hg Nov, MEDICATIONS Medication SIG (Take, Route, Frequency, Duration) Notes Start Da te End Date Status Doxycycline Monohydrate 100 MG 1 capsule Orally Twice a day for 7 day(s) Jul, Not-Taking Doxycycline Hyclate 100 MG 1 tablet Orally Twice a day for 10 da y(s) Apr, Not-Taking traMADol HCl 50 MG 1 tab Orally every 6 hours as needed/MMD #4 Dr. Gonzalez Nelson Active Chantix Starting Month Leo 0.5 MG [...] Information RESULTS No Results REASON FOR VISIT right foot pain, dropped a table on it, Reference #:[id number] no records MEDICAL (GENERAL) HISTORY Type Description Date Medical [...] Notes Treatment Notes Treatm ent Clinical Notes Nov, Injury of right foot, initial encounter (ICD-10 - S99.921A) X ray ordered to ensure no fracture. Nov, Contusion of right lower leg , initial encounter (ICD-10 - S80.11XA) Contusion evident on exam. Discussed natural course. PLAN OF TREATMENT Treatment Notes Assessment Notes Clinical Notes Injury of right foot, initial encounter X ray ordered to ensure no fracture. Contusion of right lower leg, initial encounter Contusion evident on exam. Discussed natural course. Future Test Test Name Order Date ADM FOOT COMPLETE [id number] Next Appt Details 1 Year Reason:annual with [facility] Provider Name:Uli Cole, 08:20:00 AM, [address] [facility], , [place], [address], Provider Name:Uli Cole, 09:30:00 AM, [address] [facility], , [place], [address], Provider Name:Uli Cole, 01:20:00 PM, [address] [facility], , [place], [address], Follow Up:1 Yearannual with Insurance Providers Payer Name Payer Address Payer Phone Insured Name Patient Relati onship to Insured Coverage Start Date Coverage End Date [facility] [address] [facility] [id number] [employer] self
--- OUTSIDE RECORDS SUMMARY | 2021-02-16 06:20 | CCD ---
Author Author [facility] Organization [facility] Address Unknown Phone Unavailable Care Team Providers Care Dish Up Person Name Role Phone Uli Cole Unavailable PROBLEMS Type Condition ICD9-CM Code [id number] Code Onset Dates Condition S tatus W/U Status Risk SNOMED Code Notes Problem Thyroid nodule E04.1 Active confirmed 33262 5005 Problem Obesity (BMI 35.0-39.9 without comorbidity) E66.9 Active confirmed 787396692 Problem Essential hypertension I10 Active confirmed 21476516 Problem Dysmenorrhea, unspecified N94.6 Active confirmed 458908374 Problem BMI 50.0-59.9, adult Z68.43 Active confirmed 673371572 Problem Vitamin D deficiency E55.9 Active confirmed 79998828 Problem Restless leg syndrome G25.81 Active confirmed 05764600 Problem Adjustment disorder with depressed mood F43.21 Active confirmed 21752808 Problem Morbid obesity E66.01 Active confirmed 78447 6002 Problem Abnormal uterine bleeding N93.9 Active confirmed 26408096793471 Problem Daytime somnolence R40.0 Active confirmed 1 87322768964 Problem Postcoital bleeding N93.0 Active confirmed 58730560 Problem Left thyroid nodule E04.1 Active confirmed 501985284 Problem B12 deficiency E53.8 Active confirmed 73119 4004 Problem Cigarette nicotine dependence without complication F17.210 Active confirmed 58986042 Problem Current moderate episode of major depressive disorder without prior episode F32.1 Active confirmed 18356935 Problem Intractable migraine with aura with status migrainosus G43.111 Active confirmed 191214984 ALLERGIES Allergen (clinical drug ingredient) Drug/Non Drug Allergy do cumented on EMR Reaction Allergy Type Onset Date Status sulfamethoxazole / trimethoprim Bactrim([facility] Code:[address]-08) Hives Drug Allergy Active Sulfa (for allergy use only) Hives Drug Allergy Active amoxicillin / clavulanate Augmentin([facility] Code:[address]-67) nausea, vomiting, blood in stools Drug Allergy Active ENCOUNTERS from 1985 to 2020-12-02 Encounter Location Date Provider Diagnosis [facility] [address] [facility] [phone] [place] [address] Nov, Uli Cole IMMUNIZATIONS Vaccine Route Administration Date Status TDAP [...] Counseled the patient on smoking cessation, education [facility] ed 07/28/2019 REASON FOR REFERRAL No [...] 6 hours as needed/MMD #4 Dr. Roth [facility] Active Chantix Starting Month Leo 0.5 [...] Information RESULTS No Results REASON FOR VISIT D & C MEDICAL (GENERAL) HISTORY Type Description Date Medical [...] Information ASSESSMENTS No Information PLAN OF TREATMENT No Information Insurance Providers Payer Name Payer Address Payer Phone Insured Name Patient Relati onship to Insured Coverage Start Date Coverage End Date [facility] [phone] [employer] self
--- OUTSIDE RECORDS SUMMARY | 2021-02-16 06:20 | CCD ---
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 Name Role Phone Uli Cole Unavailable PROBLEMS Type Condition ICD9-CM Code VNW97-KH Code Onset Dates Condition S tatus W/U Status Risk SNOMED Code Notes Problem Thyroid nodule E04.1 Active confirmed 21478 5005 Problem Obesity (BMI 35.0-39.9 without comorbidity) E66.9 Active confirmed 080232060 Problem Essential hypertension I10 Active confirmed 24854378 Problem Dysmenorrhea, unspecified N94.6 Active confirmed 743956863 Problem BMI 50.0-59.9, adult Z68.43 Active confirmed 699488623 Problem Vitamin D deficiency E55.9 Active confirmed 90900948 Problem Restless leg syndrome G25.81 Active confirmed 47874067 Problem Adjustment disorder with depressed mood F43.21 Active confirmed 16188332 Problem Morbid obesity E66.01 Active confirmed 02097 6002 Problem Abnormal uterine bleeding N93.9 Active confirmed 42242567217961 Problem Daytime somnolence R40.0 Active confirmed 1 96751110725 Problem Postcoital bleeding N93.0 Active confirmed 53870546 Problem Left thyroid nodule E04.1 Active confirmed 271959882 Problem B12 deficiency E53.8 Active confirmed 49429 4004 Problem Cigarette nicotine dependence without complication F17.210 Active confirmed 27561188 Problem Current moderate episode of major depressive disorder without prior episode F32.1 Active confirmed 21352457 Problem Intractable migraine with aura with status migrainosus G43.111 Active confirmed 204597397 ALLERGIES Allergen (clinical drug ingredient) Drug/Non Drug Allergy do cumented on EMR Reaction Allergy Type Onset Date Status sulfamethoxazole / trimethoprim Bactrim([facility] Code:[address]-91) Hives Drug Allergy Active Sulfa (for allergy use only) Hives Drug Allergy Active amoxicillin / clavulanate Augmentin([facility] Code:[address]-46) nausea, vomiting, blood in stools Drug Allergy Active ENCOUNTERS from 1985 to 2020-12-06 Encounter Location Date Provider Diagnosis [facility] [address] [facility] [phone] [place] [address] Nov, Uli Cole IMMUNIZATIONS Vaccine Route Administration [...] Counseled the patient on smoking cessation, education [facility] ed 07/28/2019 REASON FOR REFERRAL No Information [...] 6 hours as needed/MMD #4 Dr. Roth [facility] Active Chantix Starting Month Leo 0.5 [...] Information RESULTS No Results REASON FOR VISIT SURG 01/11/21 AUTH MEDICAL (GENERAL) HISTORY Type Description Date Medical [...] Appt Details Provider Name:Uli Cole, 08:20:00 AM, [address] [place] [address], [id number] [place], [place] [address] Provider Name:Uli Cole, 09:30:00 AM, [address] [place] [address], [place], [address], Provider Name:Uli Cole, 01:20:00 PM, [address] [place] [address], [place], [address], Insurance Providers Payer Name Payer Address Payer Phone Insured Name Patient Relati onship to Insured Coverage Start Date Coverage End Date [facility] [address] [facility] [phone] [employer] [employer]OD self
[2021-02-16 07:03] LABS: HEMATOCRIT 40.5 % (36.0-47.0); HEMOGLOBIN 12.6 g/dl (12.0-15.5); MEAN CORPUSCULAR HEMOGLOBIN 25.3 pg (27.0-33.0); MEAN CORPUSCULAR HGB CONC 31.1 g/dl (32.0-36.5); MEAN CORPUSCULAR VOLUME 81.2 fl (80.0-96.0); PLATELET COUNT, AUTOMATED 343 10^3/uL (150-450); RED BLOOD COUNT 4.99 10^6/uL (4.00-5.40); WHITE BLOOD COUNT 12.3 10^3/uL (4.0-10.0)
[2021-02-16] MEDS ORDERED: SILVER NITRATE APPLICATOR As Ordered ONE (07:08)
[2021-02-16] MEDS ORDERED: KETOROLAC 60MG 2ML VIAL As Ordered ONE (07:58)
[2021-02-16] MEDS ORDERED: DESFLURANE 240 ML INHALANT As Ordered ONE (07:58)
[2021-02-16] MEDS ORDERED: ONDANSETRON 4MG/2ML VIAL As Ordered ONE (07:58)
[2021-02-16] MEDS ORDERED: fentaNYL 100 MCG/2 ML INJECTION (J3010) As Ordered ONE (07:58)
[2021-02-16] MEDS ORDERED: dexameTHASONE 4 MG/ML 1ML VIAL (J1100 PER 1MG) As Ordered ONE (07:58)
[2021-02-16] MEDS ORDERED: ROCURONIUM BROMIDE 50 MG/5 ML VIAL As Ordered ONE (07:58)
[2021-02-16] MEDS ORDERED: MIDAZOLAM INJ 2MG/2ML VIAL (J2250 PER 1MG) As Ordered ONE (07:58)
[2021-02-16] MEDS ORDERED: propofoL 200 MG/20 ML VIAL As Ordered ONE (07:58)
[2021-02-16] MEDS ORDERED: METOCLOPRAMIDE INJ 10MG/2ML VIAL (J2765 PER 1) As Ordered ONE (07:58)
[2021-02-16] MEDS ORDERED: SUGAMMADEX SODIUM 500 MG/5 ML VIAL (BRIDION) As Ordered ONE (07:58)
[2021-02-16] MEDS ORDERED: ACETAMINOPHEN 1000MG 100ML IV BTL (OFIRMEV) (J0131 PER 10MG) As Ordered ONE (08:06)
[2021-02-16] MEDS ORDERED: LIDOCAINE 2% 100MG/5ML SDV (FOR ANES.) As Ordered ONE (08:16)
[2021-02-16] MEDS ORDERED: IBUP1TAB7 PO (08:45)
--- NOTE | 2021-02-16 08:49 | ROOPDOC ---
[facility] Report Of Operation Report of Operation DATE OF PROCEDURE: 02/16/2021 PREOPERATIVE DIAGNOSES: Abnormal uterine bleeding. Possible endometrial mass/polyp. PCOS Obesity POSTOPERATIVE DIAGNOSES: Abnormal uterine bleeding. Possible endometrial mass/polyp. PCOS Obesity PROCEDURE PERFORMED: Hysteroscopy dilatation and curettage. MyoSure morcellation of endometrial mass/tissue. SURGEON: Saumya Cole DO ALIGNMENT SPECIALIST: None. ANESTHESIA TYPE: General via LMA. SPECIMENS SENT TO PATHOLOGY: Endometrial mass/polyp (morcellated). Endometrial curettings. ESTIMATED BLOOD LOSS: 50 mL. FLUIDS REPLACED: 700 mL lactated Ringer's. DRAINS: In and out urinary catheter. URINE OUTPUT: 50 mL. COMPLICATIONS: None. FLUID DEFICIT: Normal saline 100 mL. PREOPERATIVE ANTIBIOTICS: None indicated. INTRAOPERATIVE FINDINGS: Approximately a 1 cm endometrial polypoid mass in the background of scattered/disorganized endometrium. Mass located posterior fundal INDICATIONS: The patient is a 35-year-old who has been complaining of chronic abnormal uterine bleeding. A pelvic ultrasound and an in- office endometrial biopsy revealed evidence of a possible endometrial polyp. The decision was made to proceed to the operating room for a hysteroscopy D&C and MyoSure morcellation of this possible endometrial mass. PROCEDURE: The patient was counseled and consented on the risks, benefits, indications, and alternatives of the procedure. Informed consent was obtained. She was taken to the operating room with an IV running and placed on the operating room table in the dorsal supine position. General anesthesia was administered and the airway secured without any difficulty. She was then placed in the high lithotomy position. She was prepped and draped in normal sterile fashion. A timeout was performed per protocol. The bladder was drained with a sterile in and out catheter. A sterile speculum was placed with good visualization of the cervix. The cervix was grasped with a single-toothed tenaculum and downward traction was applied. The cervix was then sequentially dilated with Zachery dilators up to a #18. The hysteroscope was placed transcervically into the intrauterine cavity with the findings noted above. The MyoSure device was used to morcellate the abnormal endometrial tissue/mass that was visualized. Once this was removed, the cavity was cleared and free of any obstruction or mass. The MyoSure device was removed and the hysteroscope was removed. The curette was placed transcervically into the intrauterine cavity and any residual endometrial decidual tissue was curetted until there was gritty texture noted throughout the cavity, indicating no more decidualized tissue. The bleeding from the os after removal of the curette was minimal. The tenaculum was removed. The tenaculum sites were cauterized with silver nitrate. All instruments were removed from the vagina. Sponge, needle, and instrument counts were correct per protocol. The patient tolerated the entire procedure well. She was transferred to the PACU in good and stable condition. SAUMYA COLE DO Feb 16, 2021 08:48
[2021-02-16] MEDS ORDERED: ONDANSETRON 4MG/2ML VIAL IV PRN (09:05)
[2021-02-16] MEDS ORDERED: LR 1,000 ML IV SCH ×2 (09:05)
[2021-02-16] MEDS ORDERED: fentaNYL 100 MCG/2 ML INJECTION (J3010) IV PRN (09:05)
[2021-02-16] MEDS ORDERED: oxyCODONE 5MG TAB PO PRN (09:05)
[2021-02-16] MEDS ORDERED: METOCLOPRAMIDE INJ 10MG/2ML VIAL (J2765 PER 1) IV PRN (09:05)
[2021-02-16 09:20] VITALS: BP 137/85
== END 2021-02-16 10:00 | disposition home or self-care (01) ==
LOC: M SDC 06:16
PROVIDERS: ATTEND Obstetrics & Gynecology
DX: N84.0 Polyp of corpus uteri (principal); N93.9 Abnormal uterine and vaginal bleeding, unspecified; E28.2 Polycystic ovarian syndrome; E66.9 Obesity, unspecified; Z88.2 Allergy status to sulfonamides; Z88.0 Allergy status to penicillin; F17.218 Nicotine dependence, cigarettes, with other nicotine-induced disorders; Z79.899 Other long term (current) drug therapy
CPT/HCPCS: 36415; 58558; 81025; 85027; 86850; 86900; 86901; 88305; J0131; J1100; J1885; J2250; J2405; J2765; J3010

== ENCOUNTER 2021-04-03 03:56 | Emergency (ER) | payer OTHER ==
[~2021-04-03] VITALS: Ht 165.1 cm; Wt 117.9 kg
[~2021-04-03 03:56] MED LIST changes: +IBUP1TAB7 PO; -LIDOCAINE 1% MDV 20ML VIAL SQ PRN; -LR 1,000 ML IV ONE
[2021-04-03] MEDS ORDERED: ONDANSETRON 4MG/2ML VIAL IV ONE (09:40)
[2021-04-03] MEDS ORDERED: NS 1,000 ML IV ONE (09:40)
[2021-04-03 10:03] LABS: BASO % 0.3 % (0.0-1.0); EOS # 0.1 10^3/uL (0.0-0.5); HEMATOCRIT 41.7 % (36.0-47.0); HEMOGLOBIN 13.2 g/dl (12.0-15.5); LYMPH # 1.4 10^3/uL (1.5-5.0); LYMPH % 12.7 % (24.0-44.0); MEAN CORPUSCULAR HEMOGLOBIN 25.4 pg (27.0-33.0); MEAN CORPUSCULAR HGB CONC 31.7 g/dl (32.0-36.5); MEAN CORPUSCULAR VOLUME 80.3 fl (80.0-96.0); MONO # 0.5 10^3/uL (0.0-0.8); MONO % 4.8 % (2.0-8.0); NEUTROPHILS # 8.9 10^3/uL (1.5-8.5); NEUTROPHILS % 80.7 % (36.0-66.0); PLATELET COUNT, AUTOMATED 306 10^3/uL (150-450); RED BLOOD COUNT 5.19 10^6/uL (4.00-5.40); WHITE BLOOD COUNT 11.1 10^3/uL (4.0-10.0)
[2021-04-03 10:46] LABS: ALBUMIN 3.1 GM/DL (3.2-5.2); ALT/SGPT 12 U/L (12-78); BILIRUBIN,DIRECT < 0.1 MG/DL (0.0-0.2); BILIRUBIN,TOTAL 0.3 MG/DL (0.2-1.0); BLOOD UREA NITROGEN 10 MG/DL (7-18); CALCIUM LEVEL 8.7 MG/DL (8.5-10.1); CARBON DIOXIDE LEVEL 26 MEQ/L (21-32); CHLORIDE LEVEL 107 MEQ/L (98-107); CREATININE FOR GFR 0.56 MG/DL (0.55-1.30); GLOMERULAR FILTRATION RATE > 60.0 (>60); GLUCOSE, FASTING 100 MG/DL (70-100); HCG, SERUM QUANTITATIVE 6329 MIU/ML; LIPASE 65 U/L (73-393); POTASSIUM SERUM 3.9 MEQ/L (3.5-5.1); SODIUM LEVEL 138 MEQ/L (136-145)
[2021-04-03] MEDS ORDERED: ACETAMINOPHEN 500 MG TAB PO ONE (12:20)
[2021-04-03] MEDS ORDERED: REGL10TA6 PO (12:25)
[2021-04-03 12:26] VITALS: BP 123/72
== END 2021-04-03 12:51 | disposition home or self-care (01) ==
LOC: M ED 03:56
DX: O99.519 Diseases of the respiratory system complicating pregnancy, unspecified trimester (principal); O09.519 Supervision of elderly primigravida, unspecified trimester; O26.619 Liver and biliary tract disorders in pregnancy, unspecified trimester; O99.891 Other specified diseases and conditions complicating pregnancy; K42.9 Umbilical hernia without obstruction or gangrene; O99.330 Smoking (tobacco) complicating pregnancy, unspecified trimester; Z79.899 Other long term (current) drug therapy; Z88.0 Allergy status to penicillin; Z88.2 Allergy status to sulfonamides
CPT/HCPCS: 76705; 80048; 80076; 81001; 83690; 84702; 85025; 87086; 87798; 96374; 99284; J2405

== ENCOUNTER → 2021-06-19 | Outpatient (CLI) | payer OTHER ==
[~2021-06-19] MED LIST changes: +REGL10TA6 PO
== END ==
LOC: M WHC 13:27
PROVIDERS: ATTEND Obstetrics & Gynecology
DX: O34.211 Maternal care for low transverse scar from previous cesarean delivery (principal); Z3A.17 17 weeks gestation of pregnancy

== ENCOUNTER → 2021-06-19 | Outpatient (CLI) | payer OTHER | LOC: M PLALAB 15:00 | PROVIDERS: ATTEND Obstetrics & Gynecology | DX: Z34.82 Encounter for supervision of other normal pregnancy, second trimester (principal); Z36.89 Encounter for other specified antenatal screening; Z53.9 Procedure and treatment not carried out, unspecified reason ==

== ENCOUNTER → 2021-07-12 | Outpatient (CLI) | payer OTHER | LOC: M WHC 14:32 | PROVIDERS: ATTEND Obstetrics & Gynecology | DX: Z36.2 Encounter for other antenatal screening follow-up (principal); Z3A.21 21 weeks gestation of pregnancy ==

== ENCOUNTER → 2021-08-18 | Outpatient (CLI) | payer OTHER ==
[2021-08-18 13:59] LABS: HEMATOCRIT 36.8 % (36.0-47.0); HEMOGLOBIN 11.6 g/dl (12.0-15.5); MEAN CORPUSCULAR HEMOGLOBIN 26.8 pg (27.0-33.0); MEAN CORPUSCULAR HGB CONC 31.5 g/dl (32.0-36.5); PLATELET COUNT, AUTOMATED 303 10^3/uL (150-450); RED BLOOD COUNT 4.33 10^6/uL (4.00-5.40); WHITE BLOOD COUNT 17.3 10^3/uL (4.0-10.0)
[2021-08-18 16:19] LABS: GC DNA AMPLIFICATION NEGATIVE (NEGATIVE)
== END ==
LOC: M PLALAB 08:55
PROVIDERS: ATTEND Obstetrics & Gynecology
DX: O10.912 Unspecified pre-existing hypertension complicating pregnancy, second trimester (principal); Z3A.00 Weeks of gestation of pregnancy not specified

== ENCOUNTER → 2021-08-21 | Outpatient (CLI) | payer OTHER | LOC: M WHC 10:42 | PROVIDERS: ATTEND Advanced Practice Midwife | DX: Z36.2 Encounter for other antenatal screening follow-up (principal); O34.211 Maternal care for low transverse scar from previous cesarean delivery; Z3A.26 26 weeks gestation of pregnancy ==

== ENCOUNTER → 2021-08-29 | Outpatient (CLI) | payer OTHER | LOC: M LAB 08:29 | PROVIDERS: ATTEND Obstetrics & Gynecology | DX: O34.211 Maternal care for low transverse scar from previous cesarean delivery (principal) ==

== ENCOUNTER → 2021-09-13 | Outpatient (CLI) | payer OTHER | LOC: M WHC 07:27 | PROVIDERS: ATTEND Advanced Practice Midwife | DX: O24.419 Gestational diabetes mellitus in pregnancy, unspecified control (principal); O32.1XX0 Maternal care for breech presentation, not applicable or unspecified; Z3A.30 30 weeks gestation of pregnancy ==

== ENCOUNTER → 2021-09-26 | Outpatient (CLI) | payer OTHER | LOC: M WHC 13:03 | PROVIDERS: ATTEND Obstetrics & Gynecology | DX: O24.419 Gestational diabetes mellitus in pregnancy, unspecified control (principal); Z3A.32 32 weeks gestation of pregnancy ==

== ENCOUNTER → 2021-10-10 | Outpatient (CLI) | payer OTHER | LOC: M WHC 07:20 | PROVIDERS: ATTEND Obstetrics & Gynecology | DX: O24.419 Gestational diabetes mellitus in pregnancy, unspecified control (principal); Z3A.34 34 weeks gestation of pregnancy ==

== ENCOUNTER → 2021-10-18 | Outpatient (CLI) | payer OTHER | LOC: M WHC 12:30 | PROVIDERS: ATTEND Obstetrics & Gynecology | DX: O24.419 Gestational diabetes mellitus in pregnancy, unspecified control (principal); Z3A.35 35 weeks gestation of pregnancy ==

== ENCOUNTER → 2021-10-18 | Outpatient (REF) | payer OTHER | LOC: M PLALAB 16:00 | PROVIDERS: ATTEND Obstetrics & Gynecology | DX: Z36.85 Encounter for antenatal screening for Streptococcus B (principal); O24.415 Gestational diabetes mellitus in pregnancy, controlled by oral hypoglycemic drugs; Z3A.00 Weeks of gestation of pregnancy not specified ==

== ENCOUNTER → 2021-10-25 | Outpatient (CLI) | payer OTHER ==
[~2021-10-25] MED LIST changes: +ECOT81TA5 PO; +METF500T13 PO
== END ==
LOC: M WHC 07:49
PROVIDERS: ATTEND Obstetrics & Gynecology
DX: O24.419 Gestational diabetes mellitus in pregnancy, unspecified control (principal); Z3A.36 36 weeks gestation of pregnancy

== ENCOUNTER → 2021-10-30 | Outpatient (CLI) | payer OTHER | LOC: M WHC 09:44 | PROVIDERS: ATTEND Obstetrics & Gynecology | DX: O24.419 Gestational diabetes mellitus in pregnancy, unspecified control (principal); Z3A.37 37 weeks gestation of pregnancy ==

== ENCOUNTER → 2021-11-01 | Outpatient (CLI) | payer OTHER | LOC: M LABSMTC 09:18 | PROVIDERS: ATTEND Anesthesiology | DX: Z01.812 Encounter for preprocedural laboratory examination (principal); Z20.822 Contact with and (suspected) exposure to COVID-19 ==

== ENCOUNTER 2021-11-06 05:28 | Inpatient (IN) | payer OTHER ==
[2021-11-06] VITALS (7 sets, daily range): BP systolic 115–150; BP diastolic 53–85
[~2021-11-06] VITALS: Ht 165.1 cm; Wt 118.8 kg
[~2021-11-06 05:28] MED LIST changes: +ALBU6.7H6 INH; -PROV108A INH
[2021-11-06] MEDS ORDERED: LACTATED RINGER'S 1000 ML IV STA ×2 (05:41)
[2021-11-06] MEDS ORDERED: LR 1,000 ML IV SCH ×2 (06:05→09:40)
[2021-11-06] MEDS ORDERED: BICITRA 30ML SOLN UDC PO ONE (06:05)
[2021-11-06 06:16] LABS: HEMATOCRIT 35.5 % (36.0-47.0); HEMOGLOBIN 11.3 g/dl (12.0-15.5); MEAN CORPUSCULAR HEMOGLOBIN 24.8 pg (27.0-33.0); MEAN CORPUSCULAR HGB CONC 31.8 g/dl (32.0-36.5); MEAN CORPUSCULAR VOLUME 77.9 fl (80.0-96.0); PLATELET COUNT, AUTOMATED 309 10^3/uL (150-450); RED BLOOD COUNT 4.56 10^6/uL (4.00-5.40); WHITE BLOOD COUNT 14.7 10^3/uL (4.0-10.0)
[2021-11-06] MEDS ORDERED: ceFAZolin SOD 2 GM in IV 1 EA IV ONE (07:35)
[2021-11-06] MEDS ORDERED: ceFAZolin SOD 1 GM in D5W MINI-BAG PLUS 50 ML IV ONE (07:35)
[2021-11-06] MEDS ORDERED: MORPHINE PRES-FREE INJ 10 MG/10 ML VIAL As Ordered ONE (08:03)
[2021-11-06] MEDS ORDERED: ONDANSETRON 4MG 2ML VIAL As Ordered ONE (08:03)
[2021-11-06] MEDS ORDERED: OXYTOCIN INJ 10 UNITS/ML VIAL (J2590) As Ordered ONE (08:03)
[2021-11-06] MEDS ORDERED: METOCLOPRAMIDE INJ 10MG/2ML VIAL (J2765 PER 1) As Ordered ONE (08:12)
[2021-11-06] MEDS ORDERED: KETOROLAC 60MG 2ML VIAL As Ordered ONE (08:35)
[2021-11-06] MEDS ORDERED: PHENYLephrine 500MCG 5ML (100MCG/ML) SYRINGE As Ordered ONE (08:43)
[2021-11-06] MEDS ORDERED: ONDANSETRON 4MG 2ML VIAL IV PRN ×3 (09:10→09:40)
[2021-11-06] MEDS ORDERED: RHOGAM 300 MCG (1500 IU) INJ (J2790) IM SCH (09:10)
[2021-11-06] MEDS ORDERED: OXYTOCIN DRIP 30 UNITS in IV 1 EA IV SCH (09:10)
[2021-11-06] MEDS ORDERED: PERCOCET 5MG/325MG TAB PO PRN ×2 (09:10→09:40)
[2021-11-06] MEDS ORDERED: SIMETHICONE 80MG CHEW TAB PO PRN (09:10)
[2021-11-06] MEDS ORDERED: PERCOCET PO (09:24)
[2021-11-06] MEDS ORDERED: COLA100C5 PO (09:24)
[2021-11-06] MEDS ORDERED: IBUP80TA PO (09:24)
[2021-11-06] MEDS ORDERED: diphenhydrAMINE 50MG/ML VIAL (J1200) IV PRN (09:40)
[2021-11-06] MEDS ORDERED: METOCLOPRAMIDE INJ 10MG/2ML VIAL (J2765 PER 1) IV PRN (09:40)
[2021-11-06] MEDS ORDERED: **NOTE PATIENT COMMENT** MISC XX SCH (09:40)
[2021-11-06] MEDS ORDERED: NALOXONE INJ 0.4MG/1ML VIAL (J2310 PER 1MG) IV PRN ×2 (09:40)
[2021-11-06] MEDS ORDERED: fentaNYL 100 MCG/2 ML INJECTION IV PRN (09:40)
[2021-11-06] MEDS ORDERED: OXYTOCIN 30 UNITS IN 0.9% NaCl 500ML IV BAG (J2590) As Ordered ONE (10:12)
[2021-11-06] MEDS: LR 1,000 ML IV SCH ×2 (10:15→22:10)
[2021-11-06] MEDS: SLF 3 ML SYR IV SCH ×2 (15:12→20:25)
[2021-11-06] MEDS: KETOROLAC 30 MG/ML 1ML VIAL IV SCH ×2 (15:13→20:51)
[2021-11-06] MEDS: DOCUSATE SODIUM 100MG CAPSULE PO SCH (20:51)
[2021-11-06] MEDS: ENOXAPARIN 40MG/0.4ML SYRINGE (J1650 PER 10MG) SC SCH (20:51)
[2021-11-06] MEDS ORDERED: ENOXAPARIN 40MG/0.4ML SYRINGE (J1650 PER 10MG) SC SCH (21:00)
[2021-11-07] MEDS ORDERED: UNRESOLVED CLARIFICATION ENTRY XX SCH (00:01)
[2021-11-07] MEDS: SLF 3 ML SYR IV SCH (01:40)
[2021-11-07 02:30] VITALS: BP 121/57
[2021-11-07] MEDS: KETOROLAC 30 MG/ML 1ML VIAL IV SCH (03:02)
[2021-11-07] MEDS: PERCOCET 5MG/325MG TAB PO PRN ×4 (04:38→23:52)
[2021-11-07 05:50] VITALS: BP 106/59
[2021-11-07 07:45] LABS: HEMATOCRIT 29.8 % (36.0-47.0); MEAN CORPUSCULAR HEMOGLOBIN 24.1 pg (27.0-33.0); MEAN CORPUSCULAR HGB CONC 30.9 g/dl (32.0-36.5); PLATELET COUNT, AUTOMATED 258 10^3/uL (150-450); RED BLOOD COUNT 3.82 10^6/uL (4.00-5.40)
[2021-11-07 08:08] LABS: HEMOGLOBIN 9.2 g/dl (12.0-15.5)
[2021-11-07] MEDS: DOCUSATE SODIUM 100MG CAPSULE PO SCH ×2 (09:27→21:20)
[2021-11-07] MEDS: PRENATAL VITAMINS CHEWABLE TABLET PO SCH (09:27)
[2021-11-07] MEDS: ENOXAPARIN 40MG/0.4ML SYRINGE (J1650 PER 10MG) SC SCH ×2 (09:29→21:20)
[2021-11-07 10:00] VITALS: BP 118/56
[2021-11-07] MEDS: IBUPROFEN 800 MG TAB PO SCH ×2 (11:49→18:30)
[2021-11-07 18:00] VITALS: BP 139/75
[2021-11-07 22:00] VITALS: BP 137/70
[2021-11-08 02:00] VITALS: BP 132/65
[2021-11-08] MEDS: IBUPROFEN 800 MG TAB PO SCH ×2 (03:10→10:38)
[2021-11-08 06:00] VITALS: BP 131/66
[2021-11-08] MEDS: PRENATAL VITAMINS CHEWABLE TABLET PO SCH (08:07)
[2021-11-08] MEDS: DOCUSATE SODIUM 100MG CAPSULE PO SCH (08:07)
[2021-11-08] MEDS: ENOXAPARIN 40MG/0.4ML SYRINGE (J1650 PER 10MG) SC SCH (08:08)
[2021-11-08] MEDS: PERCOCET 5MG/325MG TAB PO PRN (08:09)
[2021-11-08 08:25] LABS: CREATININE FOR GFR 0.67 MG/DL (0.55-1.30); GLOMERULAR FILTRATION RATE > 60.0 (>60)
[2021-11-08] MEDS ORDERED: MEASLES,MUMPS,RUBELLA VACCINE INJ (MMR-II) (90707) SC.IMMUN ONE (09:00)
[2021-11-08 10:00] VITALS: BP 129/61
== END 2021-11-08 12:15 | disposition home or self-care (01) | DRG 540 ==
LOC: M LDI 05:28 → M OBS 11:55
PROVIDERS: ADMIT Obstetrics & Gynecology; ATTEND Obstetrics & Gynecology
PROC: 10D00Z1 Extraction of Products of Conception, Low, Open Approach (ICD-10-PCS; principal; 2021-11-06 07:30)
DX: O34.211 Maternal care for low transverse scar from previous cesarean delivery (principal); O10.92 Unspecified pre-existing hypertension complicating childbirth; O24.419 Gestational diabetes mellitus in pregnancy, unspecified control; Z37.0 Single live birth; Z3A.38 38 weeks gestation of pregnancy; O09.523 Supervision of elderly multigravida, third trimester

== ENCOUNTER 2022-02-08 12:30 | Emergency (ER) | payer OTHER ==
[~2022-02-08] VITALS: Ht 162.6 cm; Wt 114.2 kg
[~2022-02-08 12:30] MED LIST changes: +COLA100C5 PO; +PERCOCET PO
[2022-02-08] MEDS ORDERED: PRENMIS3 PO (12:39)
[2022-02-08 14:45] LABS: BASO % 0.2 % (0.0-1.0); EOS # 0.1 10^3/uL (0.0-0.5); EOS % 0.3 % (0.0-3.0); HEMATOCRIT 41.6 % (36.0-47.0); HEMOGLOBIN 12.7 g/dl (12.0-15.5); LYMPH # 1.3 10^3/uL (1.5-5.0); LYMPH % 5.7 % (24.0-44.0); MEAN CORPUSCULAR HEMOGLOBIN 24.4 pg (27.0-33.0); MEAN CORPUSCULAR HGB CONC 30.5 g/dl (32.0-36.5); MEAN CORPUSCULAR VOLUME 79.8 fl (80.0-96.0); MONO # 0.7 10^3/uL (0.0-0.8); NEUTROPHILS # 20.7 10^3/uL (1.5-8.5); PLATELET COUNT, AUTOMATED 360 10^3/uL (150-450); RED BLOOD COUNT 5.21 10^6/uL (4.00-5.40)
[2022-02-08 15:25] LABS: BLOOD UREA NITROGEN 14 MG/DL (7-18); CALCIUM LEVEL 9.1 MG/DL (8.5-10.1); CARBON DIOXIDE LEVEL 24 MEQ/L (21-32); CHLORIDE LEVEL 106 MEQ/L (98-107); CREATININE FOR GFR 0.72 MG/DL (0.55-1.30); GLOMERULAR FILTRATION RATE > 60.0 (>60); GLUCOSE, FASTING 110 MG/DL (70-100); POTASSIUM SERUM 4.5 MEQ/L (3.5-5.1); SODIUM LEVEL 136 MEQ/L (136-145)
[2022-02-08 16:13] LABS: HCG, SERUM QUALITATIVE NEGATIVE (NEGATIVE)
[2022-02-08] MEDS ORDERED: ISOVUE-370 76% 100ML VIAL As Ordered ONE (16:39)
[2022-02-08 16:48] LABS: HEMATOCRIT 43.2 % (36.0-47.0); HEMOGLOBIN 13.1 g/dl (12.0-15.5)
[2022-02-08] MEDS ORDERED: NS 1,000 ML IV ONE (17:00)
[2022-02-08 18:08] VITALS: BP 111/65
== END 2022-02-08 18:20 | disposition home or self-care (01) ==
LOC: M ED 12:30
DX: N92.0 Excessive and frequent menstruation with regular cycle (principal); K76.0 Fatty (change of) liver, not elsewhere classified; K42.0 Umbilical hernia with obstruction, without gangrene; D72.829 Elevated white blood cell count, unspecified; D17.23 Benign lipomatous neoplasm of skin and subcutaneous tissue of right leg; R42 Dizziness and giddiness; F17.200 Nicotine dependence, unspecified, uncomplicated; Z88.1 Allergy status to other antibiotic agents; Z88.2 Allergy status to sulfonamides; Z79.899 Other long term (current) drug therapy

== ENCOUNTER → 2022-03-07 | Outpatient (REF) | payer OTHER ==
[~2022-03-07] MED LIST changes: +PRENMIS3 PO
[2022-03-07 15:13] LABS: BASO % 0.3 % (0.0-1.0); EOS # 0.2 10^3/uL (0.0-0.5); HEMATOCRIT 39.6 % (36.0-47.0); LYMPH % 17.8 % (24.0-44.0); MEAN CORPUSCULAR HEMOGLOBIN 24.5 pg (27.0-33.0); MEAN CORPUSCULAR HGB CONC 30.3 g/dl (32.0-36.5); MEAN CORPUSCULAR VOLUME 80.8 fl (80.0-96.0); MONO # 0.6 10^3/uL (0.0-0.8); MONO % 5.6 % (2.0-8.0); NEUTROPHILS # 8.3 10^3/uL (1.5-8.5); NEUTROPHILS % 73.1 % (36.0-66.0); PLATELET COUNT, AUTOMATED 331 10^3/uL (150-450); WHITE BLOOD COUNT 11.4 10^3/uL (4.0-10.0)
[2022-03-07 16:25] LABS: ALBUMIN 3.4 G/DL (3.2-5.2); ALKALINE PHOSPHATASE 118 U/L (46-116); ALT/SGPT 16 U/L (7.0-40); AST/SGOT 14 U/L (<34); BILIRUBIN,TOTAL 0.3 MG/DL (0.3-1.2); BLOOD UREA NITROGEN 24 MG/DL (9-23); CALCIUM LEVEL 8.7 MG/DL (8.5-10.1); CARBON DIOXIDE LEVEL 26 MMOL/L (20-31); CHLORIDE LEVEL 105 MMOL/L (98-107); CHOLESTEROL LEVEL 154 MG/DL (<200); CHOLESTEROL RISK RATIO 3.37 (<5); CREATININE FOR GFR 0.73 MG/DL (0.55-1.30); FREE T4 1.23 NG/DL (0.89-1.76); GLOMERULAR FILTRATION RATE > 60.0 (>60); GLUCOSE, FASTING 100 MG/DL (60-100); HDL CHOLESTEROL 45.6 MG/DL (>40); LDL CHOLESTEROL 87.6 MG/DL (<100); NON-HDL-C 108 MG/DL; POTASSIUM SERUM 4.8 MMOL/L (3.5-5.1); SODIUM LEVEL 139 MMOL/L (136-145); THYROID STIMULATING HORMONE 1.045 uIU/ML (0.55-4.78); TOTAL PROTEIN 7.3 G/DL (5.7-8.2); TRIGLYCERIDES LEVEL 104 MG/DL (<150)
[2022-03-07 22:57] LABS: HEMOGLOBIN A1c 5.3 % (4.0-6.0)
== END ==
LOC: M SFHCADAM 08:16
PROVIDERS: ATTEND Physician Assistant
DX: K76.0 Fatty (change of) liver, not elsewhere classified (principal); Z86.32 Personal history of gestational diabetes; D72.829 Elevated white blood cell count, unspecified

== ENCOUNTER → 2022-05-22 | Outpatient (REF) | payer OTHER | LOC: M SFHCWAGY 17:13 | PROVIDERS: ATTEND Obstetrics & Gynecology | DX: Z12.4 Encounter for screening for malignant neoplasm of cervix (principal); R87.615 Unsatisfactory cytologic smear of cervix ==

== ENCOUNTER → 2022-06-12 | Outpatient (CLI) | payer OTHER | LOC: M WHC 10:02 | PROVIDERS: ATTEND Obstetrics & Gynecology | DX: N93.9 Abnormal uterine and vaginal bleeding, unspecified (principal); R93.89 Abnormal findings on diagnostic imaging of other specified body structures; D25.9 Leiomyoma of uterus, unspecified ==

== ENCOUNTER → 2022-06-27 | Outpatient (CLI) | payer OTHER | LOC: M PLALAB 13:38 | PROVIDERS: ATTEND Obstetrics & Gynecology | DX: Z32.01 Encounter for pregnancy test, result positive (principal) ==

== ENCOUNTER → 2022-06-29 | Outpatient (CLI) | payer OTHER | LOC: M PLALAB 13:19 | PROVIDERS: ATTEND Obstetrics & Gynecology | DX: Z32.01 Encounter for pregnancy test, result positive (principal) ==

== ENCOUNTER → 2022-07-20 | Outpatient (CLI) | payer OTHER ==
[~2022-07-20] MED LIST changes: +FLUT50SP17 INH; -FLUTISP INH
[2022-07-20 14:22] LABS: HEMATOCRIT 40.2 % (36.0-47.0); HEMOGLOBIN 12.5 g/dl (12.0-15.5); MEAN CORPUSCULAR HEMOGLOBIN 23.9 pg (27.0-33.0); MEAN CORPUSCULAR HGB CONC 31.1 g/dl (32.0-36.5); MEAN CORPUSCULAR VOLUME 76.7 fl (80.0-96.0); PLATELET COUNT, AUTOMATED 297 10^3/uL (150-450); RED BLOOD COUNT 5.24 10^6/uL (4.00-5.40); WHITE BLOOD COUNT 11.8 10^3/uL (4.0-10.0)
[2022-07-20 15:19] LABS: HIV 1&2 SCREEN ATELLICA NEGATIVE (NEGATIVE)
[2022-07-20 15:49] LABS: GC DNA AMPLIFICATION NEGATIVE (NEGATIVE)
== END ==
LOC: M PLALAB 11:23
PROVIDERS: ATTEND Advanced Practice Midwife
DX: Z34.81 Encounter for supervision of other normal pregnancy, first trimester (principal)

== ENCOUNTER → 2022-07-25 | Outpatient (REF) | payer OTHER | LOC: M SFHCADAM 11:20 | PROVIDERS: ATTEND Physician Assistant Medical | DX: J98.8 Other specified respiratory disorders (principal) ==

== ENCOUNTER → 2022-08-14 | Outpatient (CLI) | payer OTHER | LOC: M PLALAB 09:08 | PROVIDERS: ATTEND Specialist | DX: Z34.81 Encounter for supervision of other normal pregnancy, first trimester (principal); Z3A.00 Weeks of gestation of pregnancy not specified ==

== ENCOUNTER → 2022-08-22 | Outpatient (CLI) | payer OTHER | LOC: M PLALAB 14:19 | PROVIDERS: ATTEND Family Medicine | DX: Z36.89 Encounter for other specified antenatal screening (principal); Z3A.00 Weeks of gestation of pregnancy not specified ==

== ENCOUNTER → 2022-09-19 | Outpatient (CLI) | payer OTHER ==
[2022-09-19 15:57] LABS: ALBUMIN 2.6 G/DL (3.2-5.2); ALKALINE PHOSPHATASE 88 U/L (46-116); ALT/SGPT < 9 U/L (7.0-40); AST/SGOT < 8 U/L (<34); BILIRUBIN,TOTAL 0.2 MG/DL (0.3-1.2); BLOOD UREA NITROGEN 7 MG/DL (9-23); CALCIUM LEVEL 8.3 MG/DL (8.5-10.1); CARBON DIOXIDE LEVEL 23 MMOL/L (20-31); CHLORIDE LEVEL 105 MMOL/L (98-107); CREATININE FOR GFR 0.48 MG/DL (0.55-1.30); GLOMERULAR FILTRATION RATE > 60.0 (>60); GLUCOSE, FASTING 118 MG/DL (60-100); POTASSIUM SERUM 3.9 MMOL/L (3.5-5.1); SODIUM LEVEL 135 MMOL/L (136-145); TOTAL PROTEIN 6.3 G/DL (5.7-8.2)
[2022-09-19 16:17] LABS: HEMOGLOBIN A1c 5.3 % (4.0-6.0)
[2022-09-19 16:22] LABS: TOTAL PROTEIN,RANDOM URINE 18.1 MG/DL (0.0-14.0)
[2022-09-19 16:30] LABS: CREATININE,RANDOM URINE 120.3 MG/DL
== END ==
LOC: M PLALAB 13:35
PROVIDERS: ATTEND Obstetrics & Gynecology
DX: O10.919 Unspecified pre-existing hypertension complicating pregnancy, unspecified trimester (principal); E66.8 Other obesity; O99.212 Obesity complicating pregnancy, second trimester; Z3A.00 Weeks of gestation of pregnancy not specified

== ENCOUNTER → 2022-10-03 | Outpatient (CLI) | payer OTHER | LOC: M WHC 08:54 | PROVIDERS: ATTEND Obstetrics & Gynecology | DX: O16.9 Unspecified maternal hypertension, unspecified trimester (principal); Z3A.20 20 weeks gestation of pregnancy ==

== ENCOUNTER → 2022-11-23 | Outpatient (CLI) | payer OTHER ==
[2022-11-23 15:09] LABS: HEMATOCRIT 34.2 % (36.0-47.0); HEMOGLOBIN 10.3 g/dl (12.0-15.5); MEAN CORPUSCULAR HEMOGLOBIN 24.3 pg (27.0-33.0); MEAN CORPUSCULAR HGB CONC 30.1 g/dl (32.0-36.5); MEAN CORPUSCULAR VOLUME 80.9 fl (80.0-96.0); PLATELET COUNT, AUTOMATED 275 10^3/uL (150-450); RED BLOOD COUNT 4.23 10^6/uL (4.00-5.40)
== END ==
LOC: M PLALAB 10:07
PROVIDERS: ATTEND Obstetrics & Gynecology
DX: O10.912 Unspecified pre-existing hypertension complicating pregnancy, second trimester (principal); Z3A.00 Weeks of gestation of pregnancy not specified

== ENCOUNTER → 2022-12-07 | Outpatient (CLI) | payer OTHER | LOC: M LAB 07:38 | PROVIDERS: ATTEND Obstetrics & Gynecology | DX: O99.810 Abnormal glucose complicating pregnancy (principal); Z3A.00 Weeks of gestation of pregnancy not specified ==

== ENCOUNTER → 2022-12-21 | Outpatient (CLI) | payer OTHER | LOC: M WHC 10:50 | PROVIDERS: ATTEND Obstetrics & Gynecology | DX: O24.419 Gestational diabetes mellitus in pregnancy, unspecified control (principal) ==

== ENCOUNTER → 2023-01-24 | Outpatient (REF) | payer OTHER ==
[~2023-01-24] MED LIST changes: +ASPI81TA26 PO; +ESTA0.25; +LABE100T6 PO
== END ==
LOC: M PLALAB 08:32
PROVIDERS: ATTEND Advanced Practice Midwife
DX: Z34.80 Encounter for supervision of other normal pregnancy, unspecified trimester (principal)

== ENCOUNTER → 2023-01-30 | Outpatient (CLI) | payer OTHER | LOC: M EKG 13:12 | PROVIDERS: ATTEND Obstetrics & Gynecology | DX: O24.415 Gestational diabetes mellitus in pregnancy, controlled by oral hypoglycemic drugs (principal); Z3A.00 Weeks of gestation of pregnancy not specified ==

== ENCOUNTER → 2023-02-20 | Outpatient (CLI) | payer OTHER ==
[2023-02-20 14:35] LABS: HEMATOCRIT 41.8 % (36.0-47.0); HEMOGLOBIN 12.5 g/dl (12.0-15.5); MEAN CORPUSCULAR HEMOGLOBIN 23.4 pg (27.0-33.0); MEAN CORPUSCULAR HGB CONC 29.9 g/dl (32.0-36.5); MEAN CORPUSCULAR VOLUME 78.1 fl (80.0-96.0); PLATELET COUNT, AUTOMATED 466 10^3/uL (150-450); RED BLOOD COUNT 5.35 10^6/uL (4.00-5.40)
== END ==
LOC: M PLALAB 10:49
PROVIDERS: ATTEND Obstetrics & Gynecology
DX: Z39.2 Encounter for routine postpartum follow-up (principal)

== ENCOUNTER → 2023-05-14 | Outpatient (REF) | payer OTHER ==
[~2023-05-14] MED LIST changes: -FLUT50SP17 INH; +FLUTISP INH
[2023-05-14 16:23] LABS: HEMATOCRIT 42.1 % (36.0-47.0); HEMOGLOBIN 12.8 g/dl (12.0-15.5); MEAN CORPUSCULAR HEMOGLOBIN 23.5 pg (27.0-33.0); MEAN CORPUSCULAR HGB CONC 30.4 g/dl (32.0-36.5); MEAN CORPUSCULAR VOLUME 77.2 fl (80.0-96.0); PLATELET COUNT, AUTOMATED 393 10^3/uL (150-450); RED BLOOD COUNT 5.45 10^6/uL (4.00-5.40); WHITE BLOOD COUNT 15.5 10^3/uL (4.0-10.0)
[2023-05-14 16:58] LABS: CREATININE, URINE 94.1 MG/DL; MAU/CREAT RATIO 9.5 MCG/MG (0.0-30.0); THYROID STIMULATING HORMONE 0.678 uIU/ML (0.55-4.78)
[2023-05-14 17:00] LABS: ALBUMIN 3.6 G/DL (3.2-5.2); ALKALINE PHOSPHATASE 104 U/L (46-116); ALT/SGPT 17 U/L (7.0-40); AST/SGOT 11 U/L (<34); BILIRUBIN,TOTAL 0.3 MG/DL (0.3-1.2); BLOOD UREA NITROGEN 13 MG/DL (9-23); CALCIUM LEVEL 9.3 MG/DL (8.5-10.1); CARBON DIOXIDE LEVEL 27 MMOL/L (20-31); CHLORIDE LEVEL 107 MMOL/L (98-107); CHOLESTEROL LEVEL 184 MG/DL (<200); CHOLESTEROL RISK RATIO 4.16 (<5); CREATININE FOR GFR 0.64 MG/DL (0.55-1.30); GLOMERULAR FILTRATION RATE > 60.0 (>60); GLUCOSE, FASTING 86 MG/DL (60-100); HDL CHOLESTEROL 44.2 MG/DL (>40); LDL CHOLESTEROL 101.6 MG/DL (<100); NON-HDL-C 139.8 MG/DL; POTASSIUM SERUM 4.3 MMOL/L (3.5-5.1); SODIUM LEVEL 138 MMOL/L (136-145); TOTAL PROTEIN 7.7 G/DL (5.7-8.2); TRIGLYCERIDES LEVEL 191 MG/DL (<150)
[2023-05-14 17:02] LABS: FREE T4 1.11 NG/DL (0.89-1.76)
[2023-05-14 20:20] LABS: HEMOGLOBIN A1c 5.4 % (4.0-6.0)
== END ==
LOC: M SFHCADAM 15:13
PROVIDERS: ATTEND Physician Assistant
DX: O24.419 Gestational diabetes mellitus in pregnancy, unspecified control (principal); Z36.89 Encounter for other specified antenatal screening; Z3A.00 Weeks of gestation of pregnancy not specified

== ENCOUNTER → 2023-12-03 | Outpatient (REF) | payer OTHER ==
[2023-12-06 14:47] LABS: HPV APTIMA Not Detected (Not Detected)
== END ==
LOC: M SFHCWAGY 15:02
PROVIDERS: ATTEND Obstetrics & Gynecology
DX: Z12.4 Encounter for screening for malignant neoplasm of cervix (principal)

== ENCOUNTER → 2024-07-20 | Outpatient (REF) | payer OTHER ==
[2024-07-20 14:02] LABS: BASO % 0.3 % (0.0-1.0); EOS # 0.2 10^3/uL (0.0-0.5); EOS % 1.2 % (0.0-3.0); HEMATOCRIT 42.3 % (36.0-47.0); HEMOGLOBIN 12.8 g/dl (12.0-15.5); LYMPH # 2.1 10^3/uL (1.5-5.0); LYMPH % 14.2 % (24.0-44.0); MEAN CORPUSCULAR HEMOGLOBIN 25.1 pg (27.0-33.0); MEAN CORPUSCULAR HGB CONC 30.3 g/dl (32.0-36.5); MEAN CORPUSCULAR VOLUME 82.9 fl (80.0-96.0); MONO # 0.6 10^3/uL (0.0-0.8); MONO % 3.9 % (2.0-8.0); NEUTROPHILS # 11.5 10^3/uL (1.5-8.5); NEUTROPHILS % 79.2 % (36.0-66.0); PLATELET COUNT, AUTOMATED 326 10^3/uL (150-450); WHITE BLOOD COUNT 14.5 10^3/uL (4.0-10.0)
[2024-07-20 14:35] LABS: ALBUMIN 3.4 G/DL (3.2-5.2); ALKALINE PHOSPHATASE 101 U/L (35-104); ALT/SGPT 17 U/L (7.0-40); AST/SGOT < 8 U/L (<34); BILIRUBIN,TOTAL 0.3 MG/DL (0.3-1.2); BLOOD UREA NITROGEN 17 MG/DL (9-23); CALCIUM LEVEL 8.8 MG/DL (8.5-10.1); CARBON DIOXIDE LEVEL 25 MMOL/L (20-31); CHLORIDE LEVEL 104 MMOL/L (98-107); CREATININE FOR GFR 0.65 MG/DL (0.55-1.30); GLOMERULAR FILTRATION RATE > 90.0 (>60); GLUCOSE, FASTING 120 MG/DL (60-100); POTASSIUM SERUM 4.6 MMOL/L (3.5-5.1); SODIUM LEVEL 140 MMOL/L (136-145); TOTAL PROTEIN 7.7 G/DL (5.7-8.2)
== END ==
LOC: M SFHCADAM 11:01
PROVIDERS: ATTEND Physician Assistant
DX: I10 Essential (primary) hypertension (principal); K76.0 Fatty (change of) liver, not elsewhere classified; E66.01 Morbid (severe) obesity due to excess calories

== ENCOUNTER → 2024-07-30 | Outpatient (CLI) | payer OTHER ==
[~2024-07-30] MED LIST changes: +ISOVUE-370 76% 100ML VIAL As Ordered ONE
== END ==
LOC: M RAD 17:17
PROVIDERS: ATTEND Surgery
DX: K42.9 Umbilical hernia without obstruction or gangrene (principal)
CPT/HCPCS: 74178; Q9967